=== PATIENT | female | born 1940 | race Caucasian/White ===

== ENCOUNTER 2019-11-01 05:00 | Outpatient (CLI) | payer MEDICARE, OTHER ==
[2019-11-01 13:57] LABS: #Basophils 0.1 thou/uL (0.0-0.2); #Eosinphils 0.3 thou/uL (0.0-0.7); #Lymphocytes 2.5 thou/uL (1.20-3.40); #Monocytes 0.6 thou/uL (0.11-0.59); #Neutrophils 2.3 thou/uL (1.40-6.50); %Basophils 1.1 % (0.0-1.0); %Eosinophils 5.1 % (0.0-10.0); %Lymphocytes 43.3 % (21.0-51.0); %Monocytes 9.6 % (0.0-10.0); %Neutrophils 40.9 % (42.0-75.0); Hemoglobin 15.1 g/dL (12.0-16.0); Mean Corpuscular HGB CONC 33.4 g/dL (32.0-36.0); Mean Corpuscular Hemoglobin 33.1 pg (27.0-31.0); Mean Corpuscular Volume 98.9 fL (78.0-98.0); Platelet Count 200 thou/uL (130-400); Red Blood Cell (RBC) Count 4.57 mill/uL (4.20-5.40); White Blood Cell (WBC) Count 5.7 thou/uL (4.8-10.8)
[2019-11-01 14:03] LABS: INR-International Normal Ratio 0.9; Prothrombin Time 12.5 sec (12.0-14.7)
[2019-11-01 14:05] LABS: Anion Gap 13 mmol/L (10-20); BUN (Urea Nitrogen) 9 mg/dL (9.8-20.1); Calc. Creatinine Clearance 0 mL/min (70-130); Calcium 9.3 mg/dL (7.8-10.44); Carbon Dioxide 26 mmol/L (23-31); Chloride 100 mmol/L (98-107); Estimated GFR-MDRD 75; Glucose 118 mg/dL (83-110); Potassium 4.3 mmol/L (3.5-5.1); Sodium 135 mmol/L (136-145)
[2019-11-01 15:09] LABS: Bacteria/HPF None Seen HPF (None Seen); Bilirubin Negative (Negative); Blood, Urine Negative (Negative); Clarity Clear (Clear); Glucose, Urine (Dipstick) Normal (Negative); Ketone, Urine Negative (Negative); Leukocyte 75 Leu/uL (Negative); Nitrite Negative (Negative); Protein, Urine (Dipstick) Negative (Neg-Trace); RBC/HPF 0-3 HPF (0-3); Specific Gravity, Urine 1.007 (1.002-1.036); Squamous Epithelial 0-3 HPF (0-3); Urobilinogen Normal mg/dL (Less than 2); WBC/HPF 0-3 HPF (0-3); pH, Urine 6.5 (5.0-9.0)
[2019-11-02 12:33] LABS: SARS-CoV-2 MS2 Positive; SARS-CoV-2 N Gene Negative; SARS-CoV-2 S Gene Negative; SARS-CoV-2 orf1ab Negative
== END 2019-11-01 05:01 | disposition home or self-care (01) ==
LOC: LABBT 05:00
PROVIDERS: ATTEND Orthopaedic Surgery
DX: Z01.812 Encounter for preprocedural laboratory examination (principal); Z11.59 Encounter for screening for other viral diseases; M17.11 Unilateral primary osteoarthritis, right knee
CPT/HCPCS: 80048; 81001; 85025; 85610; 87081; U0003; 87635

== ENCOUNTER 2019-11-05 05:46 | Day surgery (SDC) | payer MEDICARE ==
[2019-10-31 11:07] VITALS: BMI 28.8
[2019-11-05] MEDS ORDERED: Vancomycin 1.5 GRAM/300 ML BAG ONE (06:01)
[2019-11-05] MEDS ORDERED: Sodium Chloride 0.9% 100 ML ONE (06:01)
[2019-11-05] MEDS ORDERED: Levofloxacin 500 mg/D5W 100 ml Premix Bag ONE (06:01)
[2019-11-05] MEDS ORDERED: Tranexamic Acid 1,000 MG/10 ML VIAL ONE (06:01)
[2019-11-05] MEDS ORDERED: Fentanyl 100 MCG/2 ML VIAL ONE ×4 (06:19→09:47)
[2019-11-05] MEDS ORDERED: Midazolam HCl 2 mg/2 ml Vial ONE (06:24)
[2019-11-05] MEDS ORDERED: Lidocaine 1% (PF) 30 ML VIAL ONE (06:24)
[2019-11-05] MEDS ORDERED: Promethazine HCl 25 MG/ML VIAL IM PRN ×3 (06:58→08:45)
[2019-11-05] MEDS ORDERED: traMADol HCl 50 MG TAB PO PRN ×2 (06:58→07:17)
[2019-11-05] MEDS ORDERED: Zolpidem Tartrate 5 MG TAB PO PRN ×2 (06:58→07:17)
[2019-11-05] MEDS ORDERED: Ondansetron PF 4 MG/2 ML Vial IVP PRN ×2 (06:58→07:17)
[2019-11-05] MEDS ORDERED: Acetaminophen 325 MG TAB PO PRN (06:58)
[2019-11-05] MEDS ORDERED: Ondansetron HCl/PF 4 MG/2 ML Vial IVP PRN (08:45)
[2019-11-05] MEDS ORDERED: Promethazine HCl 25 MG/ML VIAL SLOW IVP PRN (08:45)
--- NOTE | 2019-11-05 09:24 | RAD ---
Exam:2 views right knee HISTORY: Status post arthroplasty COMPARISON: None FINDINGS: Findings compatible with a right knee arthroplasty. Expected postoperative changes. IMPRESSION: Expected postoperative changes
[2019-11-05] MEDS: Sodium Chloride 0.9% 1,000 ML IV SCH ×2 (10:20→11:26)
[2019-11-05] MEDS: Aspirin 81 mg Enteric Coated Tablet PO SCH ×2 (10:20→20:04)
[2019-11-05] MEDS: metFORMIN 500 MG TAB PO SCH ×3 (10:20→16:47)
--- NOTE | 2019-11-05 10:20 | OP ---
DATE OF PROCEDURE: 11/05/2019 This is Dwayne Strong PA-C dictating a report for Ti Huizar MD. PREOPERATIVE DIAGNOSES: 1. End-stage tricompartmental osteoarthritis, right knee. 2. Degenerative genu varum. POSTOPERATIVE DIAGNOSES: 1. End-stage tricompartmental osteoarthritis, right knee. 2. Degenerative genu varum. PROCEDURE PERFORMED: Cemented cruciate-sparing computer-assisted navigated right total knee arthroplasty. INDUSTRIAL MAINTENANCE MANAGER: Dwayne Strong PA-C. ANESTHESIA: General via LMA, augmented with indwelling adductor canal block and a single-shot sciatic block. COMPONENTS USED: [employer] Tri[employer]lon cemented cruciate-sparing size 5 femoral component with a size 4 cemented primary tibial baseplate, 9-mm polyethylene fixed bearing insert, and A32 patella button. FINDINGS: End-stage severe degenerative tricompartmental disease, [id number] arthrosis, periarticular osteophyte formation, large serous effusion, hypertrophic synovium, and changes consistent with degenerative genu varum. DRAINS: None. SPECIMENS: None. COMPLICATIONS: None. COUNTS: Correct. INDICATIONS FOR SURGERY: Lashawn is a 78-year-old white female who has had progressive right knee pain and problem with standing and walking for the last 5 to 7 years. She has failed conservative management and elected to proceed with total knee arthroplasty as definitive treatment of her pain. PROCEDURE IN DETAIL: After informed consent was obtained in the preoperative holding area, the patient was taken to the operative suite where general anesthesia was induced. Once adequate level of general anesthesia was obtained, the patient was positioned and a well-padded tourniquet was placed around the right proximal thigh. The right lower extremity was then prepped and draped in the usual sterile fashion. Prior to exsanguination, a time-out was called and all members of the surgical team agreed upon site, surgeon, and patient. The extremity was then exsanguinated and the tourniquet was raised. A midline longitudinal incision was then made directly over the patella extending 2 fingerbreadths above the superior pole of the patella and 2 fingerbreadths inferior to the inferior patellar pole of the patella. Deeper subcutaneous layers were dissected sharply and local bleeding was controlled with Bovie electrocautery. A quad tendon longitudinal split was then made sharply and a median parapatellar arthrotomy was carried out both sharp and with Bovie electrocautery, carried down to 1 fingerbreadth medial to the tibial tubercle. The knee was then placed into flexion and the patella was everted nicely, and a copious fat pad ectomy was performed, allowing for greater exposure of the tibia. The computer-assisted distal femoral fiducial was then placed and pinned firmly, and the distal femoral cutting guide was pinned firmly into place. The oscillating saw was then used to remove the appropriate amount of bone. The 4-in-1 cutting block was then placed on the distal femur and the oscillating saw was used to remove the appropriate amount of bone off the anterior, posterior, and chamfer cuts. After completion of bone cuts, the anterior cruciate ligament was resected sharply and the posterior cruciate ligament retractor was placed and the tibia was subluxed for better exposure. Partial meniscectomies were carried out, and the tibial computer-assisted fiducial was pinned, and the cutting guide was placed. Oscillating saw was then used to remove the bone, with Hohmann retractors used to take care and protect the collateral ligaments. After the tibial resection was performed, a laminar curtain worker was placed in between the freshened bone cuts. The knee placed at 90 degrees and further bilateral meniscectomies were carried out, and the curved osteotome and curettage were used to remove any excess bone spurs in the posterior compartment. The trial femoral component, tibial baseplate were placed with the appropriate polyethylene trial insert with an appropriate polyethylene spacer and patellar button. The knee was taken through full range of motion with flexion and extension from 0 to 90 degrees and patellar broach squarely in the trochlea without any squinting or subluxation noted. The knee was also stable to varus and valgus stressing at 0, 15, 45, and 90 degrees of flexion. The drawer was negative. All trial components were then removed and the keel punch was used to provide the appropriate defect in the tibia with a mallet. The freshened bone cuts were copiously irrigated with pulsatile lavage of about 1.5 L to remove all excess debris. The freshened bone cuts were then dried with suction and lap sponge. The knee was placed in flexion and retractors were placed to provide access to all bone cuts. Tobramycin-impregnated methyl methacrylate cement was then placed on the freshened bone cuts and implants which were malleted firmly into place. Curettage and Magnolia elevators were used to remove any excess bone cement. The knee was placed into full extension and the patellar button was placed under compression, and the cement was allowed to cure. Once completed, the components were again taken through full range of motion and copious irrigation of the knee was carried out with another liter of normal saline. All components were inspected fully with full range of motion and varus and valgus stressing. There was no laxity noted and full extension was observed clinically. Primary closure was accomplished with #2 interrupted Vicryl stitch of the arthrotomy defect. This was oversewn with a #2 running Quill barbed stitch. The subcutaneous layer was then closed with a running 0 barbed Monocryl stitch and skin closure accomplished with a running subcuticular 3-0 Monocryl barbed Quill stitch and augmented with cement on the skin. Tourniquet was lowered. Good spontaneous return of distal pulses was noted clinically and a sterile dressing was applied to the incision. The procedure was terminated without any complications. The patient was awakened in the operative suite and taken to the recovery room in stable condition. Job ID: [id number]
[2019-11-05] MEDS: Carvedilol 3.125 MG TAB PO SCH ×2 (10:21→20:04)
[2019-11-05] MEDS: sulfaSALAzine 500 MG TAB PO SCH ×2 (10:21→22:00)
[2019-11-05] MEDS: Ketorolac Tromethamine 30 MG/ML VIAL IVP SCH ×2 (11:23→17:45)
[2019-11-05] MEDS ORDERED: Insulin Regular 300 UNITS/3 ML VIAL SC PRN ×2 (11:36)
[2019-11-05] MEDS ORDERED: Dextrose 50% Abboject 50 ML SYRINGE SLOW IVP PRN (11:36)
[2019-11-05] MEDS ORDERED: Dextrose 5% in Water 1,000 ML IV PRN (11:36)
[2019-11-05] MEDS ORDERED: hydrALAZINE 20 MG/ML VIAL SLOW IVP PRN (11:38)
--- NOTE | 2019-11-05 11:39 | PDOC.HOSPP ---
- Subjective Encounter Date: 11/05/19 Encounter Time: 15:16 Subjective: Ms. Morales is seen today for management of her medical mngt while she is in the hospital s/p right knee arthroscopy done today by Dr. Huizar. She is feeling well currently. She reports some nasal congestion due to allergies, but this has been ongoing x 6 months. - Objective Vital Signs & Weight: Vital Signs (12 hours) Temp Pulse Resp BP Pulse Ox 11/05/19 10:30 97.7 F 72 18 127/76 94 L Weight Weight 190 lb Additional Labs: Accuchecks 11/05/19 11:32 POC Glucose 171 H Laboratory Tests 10/31/19 11:16 Potassium 4.3 Creatinine 0.75 EKG Reviewed by me: Yes (SR) Hospitalist ROS - Review of Systems Respiratory: denies: cough, dry, shortness of breath, hemoptysis, SOB with excertion, pleuritic pain, sputum, wheezing, other Cardiovascular: denies: chest pain, palpitations, orthopnea, paroxysmal noc. dyspnea, edema, light headedness, other Musculoskeletal: reports: other (right knee pain) - Medication Medications: Active Medications Generic Name Dose Route Start Last Admin Trade Name Freq PRN Reason Stop Dose Admin Aspirin 81 mg 11/05/19 09:00 11/05/19 10:20 Ecotrin PO Not Given BID NAMRATA Carvedilol 3.125 mg 11/05/19 09:00 11/05/19 10:21 Coreg PO Not Given BID NAMRATA Sodium Chloride 1,000 mls @ 100 mls/hr 11/05/19 07:00 11/05/19 11:26 Normal Saline 0.9% IV 1,000 mls .Q10H NAMRATA Administration Ketorolac Tromethamine 15 mg 11/05/19 12:00 11/05/19 11:23 Toradol IVP 11/07/19 06:01 15 mg Q6HR NAMRATA Administration Metformin HCl 500 mg 11/05/19 08:00 11/05/19 11:29 Glucophage PO 500 mg TID-WM NAMRATA Administration Sulfasalazine 1,000 mg 11/05/19 09:00 11/05/19 10:21 Azulfidine PO Not Given BID NAMRATA - Exam General Appearance: NAD, awake alert Eye: PERRL, anicteric sclera ENT: normocephalic atraumatic Heart: RRR, no murmur, no gallops, no rubs Respiratory: CTAB Gastrointestinal: soft, non-tender, normal bowel sounds Psychiatric: A&O x 3 Hosp A/P - Plan DM2 - glucose is 171 today CKD 2 HTN Hypothyroidism Plan: Will continue with her Metformin Start on moderate sliding scale insulin Glucose check ACHS Diabetic diet Cont Coreg Cont Levothyroidism
[2019-11-05] MEDS: traMADol HCl 50 MG TAB PO PRN ×2 (12:18→19:53)
[2019-11-05] MEDS ORDERED: Dexamethasone 20 MG/5 ML VIAL ONE (12:46)
[2019-11-05] MEDS ORDERED: Ketorolac Tromethamine 30 MG/ML VIAL ONE (12:46)
[2019-11-05] MEDS ORDERED: Bupivacaine HCl 0.5%/Epinephrine 1:200,000/PF 30 ml Vial ONE (12:46)
[2019-11-05] MEDS ORDERED: Ondansetron PF 4 MG/2 ML Vial ONE (12:46)
[2019-11-05] MEDS ORDERED: PROPOFOL 200 MG/20 ML VIAL ONE (12:46)
[2019-11-05] MEDS ORDERED: EPHEDRINE 25 MG/5 ML SYRINGE ONE (12:46)
[2019-11-05] MEDS ORDERED: Ropivacaine 0.2% HCl/PF (40 MG/20 ML VIAL) ONE (12:46)
[2019-11-05] MEDS: Fentanyl 100 MCG/2 ML VIAL SLOW IVP PRN ×4 (13:52→23:05)
[2019-11-05] MEDS ORDERED: Ketorolac Tromethamine 30 MG/ML VIAL IVP SCH (14:00)
[2019-11-05] MEDS: diphenhydrAMINE 25 MG CAP PO PRN ×2 (15:41→22:01)
[2019-11-05] MEDS ORDERED: Vancomycin 1.5 GRAM/300 ML BAG 1.5 GM in Premix Bag 1 BAG IVPB SCH (18:00)
[2019-11-05] MEDS: Atorvastatin Calcium 20 MG TAB PO SCH (20:04)
[2019-11-05] MEDS ORDERED: Doxepin HCl 10 MG CAP PO PRN (23:30)
[2019-11-05] MEDS ORDERED: tiZANidine HCl 4 MG TAB PO PRN (23:35)
[2019-11-06] MEDS: tiZANidine HCl 4 MG TAB PO PRN (00:06)
[2019-11-06] MEDS: Ketorolac Tromethamine 30 MG/ML VIAL IVP SCH ×4 (00:06→17:02)
[2019-11-06] MEDS: Sodium Chloride 0.9% 1,000 ML IV SCH ×3 (01:59→23:08)
[2019-11-06] MEDS: Acetaminophen 325 MG TAB PO PRN ×2 (02:11→21:50)
[2019-11-06] MEDS: traMADol HCl 50 MG TAB PO PRN (02:11)
[2019-11-06] MEDS: Fentanyl 100 MCG/2 ML VIAL SLOW IVP PRN (02:22)
[2019-11-06 05:19] LABS: Hemoglobin 12.3 g/dL (12.0-16.0); Mean Corpuscular HGB CONC 33.1 g/dL (32.0-36.0); Mean Corpuscular Hemoglobin 33.5 pg (27.0-31.0); Mean Platelet Volume 7.6 fL (7.4-10.4); Platelet Count 164 thou/uL (130-400); Red Blood Cell (RBC) Count 3.66 mill/uL (4.20-5.40); White Blood Cell (WBC) Count 8.2 thou/uL (4.8-10.8)
[2019-11-06] MEDS: Levothyroxine 150 MCG TAB PO SCH (05:43)
[2019-11-06] MEDS ORDERED: diphenhydrAMINE 50 MG/ML VIAL IM/IV PRN (06:38)
[2019-11-06] MEDS ORDERED: Zolpidem Tartrate 5 MG TAB PO PRN (06:38)
[2019-11-06] MEDS ORDERED: Promethazine HCl 25 MG/ML VIAL IM PRN (06:38)
[2019-11-06] MEDS ORDERED: Naloxone HCl 0.4 mg/ml Vial IV PRN (06:38)
[2019-11-06] MEDS: fentaNYL Citrate/PF 2,000 MCG in Sodium Chloride 0.9% 60 ML IV PRN (07:35)
[2019-11-06] MEDS: Ropivacaine HCl/PF 250 ML in Premix Bag 1 BAG NERVE BLCK SCH (07:36)
[2019-11-06] MEDS: metFORMIN 500 MG TAB PO SCH ×3 (08:22→17:03)
[2019-11-06] MEDS: Ferrous Gluconate 324 MG TAB PO SCH ×2 (08:22→17:03)
[2019-11-06] MEDS: Multivitamin W/ Minerals 1 TAB PO SCH (08:22)
[2019-11-06] MEDS: Carvedilol 3.125 MG TAB PO SCH ×2 (08:23→21:50)
[2019-11-06] MEDS: Senokot S 8.6-50 MG TAB PO SCH ×2 (08:23→21:50)
[2019-11-06] MEDS: Aspirin 81 mg Enteric Coated Tablet PO SCH ×2 (08:23→21:51)
[2019-11-06] MEDS: sulfaSALAzine 500 MG TAB PO SCH ×2 (08:39→21:50)
[2019-11-06] MEDS: diphenhydrAMINE 25 MG CAP PO PRN (09:31)
--- NOTE | 2019-11-06 16:55 | PRG ---
DATE OF SERVICE: 11/06/2019 SUBJECTIVE: Lashawn is a 78-year-old female, who is postop day 1 from right total knee arthroplasty. She is doing relatively well, but she continues to complain about many things. OBJECTIVE: VITAL SIGNS: Temperature 98, pulse 66, respiratory rate 16, and blood pressure 109/59. GENERAL: She is alert, responsive, appropriate with examiner. She is neurovascularly intact in the right lower extremity. LABORATORY DATA: Hemoglobin and hematocrit 12.3 and 37.0. IMPRESSION: A 78-year-old female, postoperative day 1, right total knee arthroplasty, doing well. PLAN: Continue with current care. Probable discharge to home tomorrow. Job ID: [id number]
[2019-11-06] MEDS: Ondansetron PF 4 MG/2 ML Vial IVP PRN (17:02)
[2019-11-06] MEDS: Atorvastatin Calcium 20 MG TAB PO SCH (21:51)
[2019-11-07] MEDS: Ketorolac Tromethamine 30 MG/ML VIAL IVP SCH ×5 (00:28→23:50)
[2019-11-07] MEDS: diphenhydrAMINE 25 MG CAP PO PRN ×2 (00:28→09:32)
[2019-11-07] MEDS: Ondansetron PF 4 MG/2 ML Vial IVP PRN (00:28)
[2019-11-07] MEDS: Levothyroxine 150 MCG TAB PO SCH (05:09)
[2019-11-07 07:08] LABS: Mean Corpuscular HGB CONC 32.1 g/dL (32.0-36.0); Mean Corpuscular Hemoglobin 33.3 pg (27.0-31.0); Mean Platelet Volume 7.1 fL (7.4-10.4); Platelet Count 164 thou/uL (130-400); RBC Distribution Width 12.1 % (11.5-14.5); White Blood Cell (WBC) Count 6.6 thou/uL (4.8-10.8)
[2019-11-07] MEDS: Ropivacaine HCl/PF 250 ML in Premix Bag 1 BAG NERVE BLCK SCH (09:32)
[2019-11-07] MEDS: Ferrous Gluconate 324 MG TAB PO SCH ×2 (09:33→18:46)
[2019-11-07] MEDS: Multivitamin W/ Minerals 1 TAB PO SCH (09:33)
[2019-11-07] MEDS: Aspirin 81 mg Enteric Coated Tablet PO SCH ×2 (09:33→21:28)
[2019-11-07] MEDS: metFORMIN 500 MG TAB PO SCH ×3 (09:33→18:46)
[2019-11-07] MEDS: Senokot S 8.6-50 MG TAB PO SCH ×2 (09:33→21:28)
[2019-11-07] MEDS: Carvedilol 3.125 MG TAB PO SCH ×2 (09:37→21:28)
[2019-11-07] MEDS: fentaNYL Citrate/PF 2,000 MCG in Sodium Chloride 0.9% 60 ML IV PRN (10:12)
[2019-11-07] MEDS: Sodium Chloride 0.9% 1,000 ML IV SCH ×2 (10:12→19:28)
[2019-11-07] MEDS: sulfaSALAzine 500 MG TAB PO SCH ×2 (12:03→21:28)
[2019-11-07] MEDS: tiZANidine HCl 4 MG TAB PO PRN (21:28)
[2019-11-07] MEDS: Atorvastatin Calcium 20 MG TAB PO SCH (21:28)
[2019-11-07] MEDS: Acetaminophen 325 MG TAB PO PRN (21:34)
[2019-11-08 00:30] VITALS: TEMP 98.8
[2019-11-08] MEDS: Levothyroxine 150 MCG TAB PO SCH (05:01)
[2019-11-08] MEDS: Ketorolac Tromethamine 30 MG/ML VIAL IVP SCH (05:02)
[2019-11-08] MEDS: diphenhydrAMINE 25 MG CAP PO PRN (05:03)
[2019-11-08] MEDS: Sodium Chloride 0.9% 1,000 ML IV SCH (06:11)
[2019-11-08 06:36] VITALS: BP 131/69
[2019-11-08] MEDS: Aspirin 81 mg Enteric Coated Tablet PO SCH (08:02)
[2019-11-08] MEDS: Senokot S 8.6-50 MG TAB PO SCH (08:02)
[2019-11-08] MEDS: metFORMIN 500 MG TAB PO SCH ×2 (08:02→11:45)
[2019-11-08] MEDS: Multivitamin W/ Minerals 1 TAB PO SCH (08:03)
[2019-11-08] MEDS: Carvedilol 3.125 MG TAB PO SCH (08:03)
[2019-11-08] MEDS: Ferrous Gluconate 324 MG TAB PO SCH (08:03)
--- NOTE | 2019-11-08 09:50 | PRG ---
DATE OF SERVICE: 11/07/2019 SUBJECTIVE: Lashawn is a 78-year-old female, postop day 2 from a right total knee arthroplasty. She has been slow to progress with therapy and her ambulatory distances are little diminished because of pain. She has had difficulty with ambulation. Otherwise, she is alert, responsive, and tolerating regular diet. OBJECTIVE: VITAL SIGNS: Temperature 97.5, pulse 67, respiratory rate 14, O2 saturation is 93% on room air, blood pressure 112/65. GENERAL: She is alert, responsive, and appropriate with examiner. Her incision is clean without any erythema and she is neurovascularly intact. IMPRESSION: A 78-year-old female, postop day 2, right total knee arthroplasty with a slow progress. PLAN: We will hold discharge for now. Plan for discharge tomorrow. Continue current care and efforts of physical therapy and if she milestones, we will discharge to home. Job ID: [id number]
[2019-11-08] MEDS: sulfaSALAzine 500 MG TAB PO SCH (09:51)
[2019-11-08] MEDS ORDERED: traMADol HCl 50 MG TAB PO PRN ×2 (12:06)
[2019-11-08] MEDS: Ondansetron PF 4 MG/2 ML Vial IVP PRN (12:12)
== END 2019-11-08 15:39 | disposition home or self-care (01) ==
LOC: SDC 05:46 → SURG B 06:58 → SDC 11-08 15:39
PROVIDERS: ATTEND Orthopaedic Surgery
PROC: 0SRC0J9 Replacement of Right Knee Joint with Synthetic Substitute, Cemented, Open Approach (ICD-10-PCS; principal; 2019-11-05)
PROC: 8E0YXBZ Computer Assisted Procedure of Lower Extremity (ICD-10-PCS; 2019-11-05)
DX: M17.11 Unilateral primary osteoarthritis, right knee (principal); M21.161 Varus deformity, not elsewhere classified, right knee; I12.9 Hypertensive chronic kidney disease with stage 1 through stage 4 chronic kidney disease, or unspecified chronic kidney disease; E11.22 Type 2 diabetes mellitus with diabetic chronic kidney disease; N18.9 Chronic kidney disease, unspecified; E03.9 Hypothyroidism, unspecified; Z79.84 Long term (current) use of oral hypoglycemic drugs; Z79.899 Other long term (current) drug therapy; Z88.0 Allergy status to penicillin; Z88.5 Allergy status to narcotic agent; Z91.013 Allergy to seafood
CPT/HCPCS: 20985; 27447; 73560; 82962; 85027; 93005; 97110 ×2; 97116 ×3; 97139 ×4; 97530 ×2; C1713; C1776; J3010 ×2; 36415; 36416; 93010; J0670; J1100; J1815; J1885; J1956; J2001; J2250; J2405; J2704; J2795; J3370; J3490; Q0163

== ENCOUNTER 2020-01-29 14:02 | Inpatient (IN) | payer MEDICARE, OTHER ==
[~2020-01-29 14:02] MED LIST: Heparin 1,000 UNITS/ML VIAL ONE
[2020-01-29 15:54] VITALS: BMI 28.8
[2020-01-29 16:23] LABS: #Basophils 0.1 thou/uL (0.0-0.2); #Lymphocytes 1.6 thou/uL (1.20-3.40); #Monocytes 1.3 thou/uL (0.11-0.59); #Neutrophils 7.4 thou/uL (1.40-6.50); %Basophils 0.6 % (0.0-1.0); %Eosinophils 0.1 % (0.0-10.0); %Lymphocytes 15.3 % (21.0-51.0); %Monocytes 12.7 % (0.0-10.0); %Neutrophils 71.2 % (42.0-75.0); Hemoglobin 13.8 g/dL (12.0-16.0); Mean Corpuscular HGB CONC 34.7 g/dL (32.0-36.0); Mean Corpuscular Hemoglobin 34.9 pg (27.0-31.0); Mean Platelet Volume 7.3 fL (7.4-10.4); Platelet Count 193 thou/uL (130-400); RBC Distribution Width 12.5 % (11.5-14.5); Red Blood Cell (RBC) Count 3.95 mill/uL (4.20-5.40); White Blood Cell (WBC) Count 10.4 thou/uL (4.8-10.8)
[2020-01-29 16:46] LABS: Anion Gap 15 mmol/L (10-20); BUN (Urea Nitrogen) 10 mg/dL (9.8-20.1); Calc. Creatinine Clearance 86 mL/min (70-130); Calcium 8.9 mg/dL (7.8-10.44); Carbon Dioxide 25 mmol/L (23-31); Chloride 94 mmol/L (98-107); Estimated GFR-MDRD 77; Glucose 154 mg/dL (83-110); Potassium 3.6 mmol/L (3.5-5.1); Sodium 130 mmol/L (136-145)
[2020-01-29] MEDS: Vancomycin 1.5 GRAM/300 ML BAG 1.5 GM in Premix Bag 1 BAG IVPB SCH (17:38)
[2020-01-29 19:35] LABS: Bacteria/HPF None Seen HPF (None Seen); Bilirubin Negative (Negative); Blood, Urine Trace (Negative); Clarity Clear (Clear); Glucose, Urine (Dipstick) Normal (Negative); Ketone, Urine 10 mg/dL (Negative); Leukocyte 75 Leu/uL (Negative); Mucous/LPF 1+ LPF (<2+); Nitrite Negative (Negative); Protein, Urine (Dipstick) 70 mg/dL (Neg-Trace); Specific Gravity, Urine 1.025 (1.002-1.036); Squamous Epithelial 0-3 HPF (0-3); pH, Urine 6.5 (5.0-9.0)
[2020-01-29] MEDS: HYDROcodone/Acetaminophen 10/325 mg Tablet PO PRN (19:52)
[2020-01-30] MEDS: HYDROcodone/Acetaminophen 10/325 mg Tablet PO PRN (04:37)
[2020-01-30] MEDS: Vancomycin 1.5 GRAM/300 ML BAG 1.5 GM in Premix Bag 1 BAG IVPB SCH ×2 (05:32→18:37)
[2020-01-30 09:11] LABS: SARS-CoV-2 NAA Rapid Test Not Detected (NotDetected)
[2020-01-30] MEDS ORDERED: Carvedilol 3.125 MG TAB PO SCH ×2 (09:45→21:00)
[2020-01-30] MEDS ORDERED: Ketorolac Tromethamine 30 MG/ML VIAL ONE (10:03)
[2020-01-30] MEDS ORDERED: Bupivacaine HCl 0.5%/Epinephrine 1:200,000/PF 30 ml Vial ONE (10:03)
[2020-01-30] MEDS ORDERED: EPHEDRINE 25 MG/5 ML SYRINGE ONE (10:03)
[2020-01-30] MEDS ORDERED: PROPOFOL 200 MG/20 ML VIAL ONE (10:03)
[2020-01-30] MEDS ORDERED: Midazolam HCl 2 mg/2 ml Vial ONE (10:14)
[2020-01-30] MEDS ORDERED: Fentanyl 100 MCG/2 ML VIAL ONE ×4 (10:14→14:05)
[2020-01-30] MEDS ORDERED: Lidocaine 1% PF 5 ML VIAL ONE (10:15)
[2020-01-30] MEDS ORDERED: Promethazine HCl 25 MG/ML VIAL IM PRN ×3 (10:19→11:45)
[2020-01-30] MEDS ORDERED: Promethazine HCl 25 MG/ML VIAL SLOW IVP PRN (10:19)
[2020-01-30] MEDS ORDERED: Ondansetron HCl/PF 4 MG/2 ML Vial IVP PRN (10:19)
[2020-01-30] MEDS ORDERED: Acetaminophen 325 MG TAB PO PRN (11:43)
[2020-01-30] MEDS ORDERED: diphenhydrAMINE 25 MG CAP PO PRN (11:43)
[2020-01-30] MEDS ORDERED: Zolpidem Tartrate 5 MG TAB PO PRN ×2 (11:43→11:45)
[2020-01-30] MEDS ORDERED: HYDROcodone/Acetaminophen 10/325 mg Tablet PO PRN ×4 (11:43→11:45)
[2020-01-30] MEDS ORDERED: Ondansetron PF 4 MG/2 ML Vial IVP PRN (11:45)
[2020-01-30] MEDS ORDERED: Ropivacaine HCl/PF 250 ML in Premix Bag 1 BAG NERVE BLCK SCH (11:45)
[2020-01-30] MEDS ORDERED: Vancomycin HCl 1.5 GM in Sodium Chloride 0.9% 250 ML 300 ML IVPB SCH (11:45)
[2020-01-30] MEDS ORDERED: traMADol HCl 50 MG TAB PO PRN ×2 (11:45→11:48)
[2020-01-30] MEDS ORDERED: Doxepin HCl 10 MG CAP PO PRN (11:48)
[2020-01-30] MEDS ORDERED: oxyCODONE/Acetaminophen 5 mg/325 mg Tablet PO PRN (13:00)
[2020-01-30] MEDS ORDERED: Bupivacaine 0.25% HCL 30 ML VIAL ONE (13:07)
[2020-01-30] MEDS: metFORMIN 500 MG TAB PO SCH ×2 (15:42→19:58)
[2020-01-30] MEDS: Sodium Chloride 0.9% 1,000 ML IV SCH (15:43)
[2020-01-30] MEDS ORDERED: Dextrose 50% Abboject 50 ML SYRINGE SLOW IVP PRN (16:24)
[2020-01-30] MEDS ORDERED: Dextrose 5% in Water 1,000 ML IV PRN (16:24)
--- NOTE | 2020-01-30 16:44 | CON ---
DATE OF CONSULTATION: 01/30/2020 PRIMARY CARE PROVIDER: None. CHIEF COMPLAINT: Management of medical comorbidities. HISTORY OF PRESENT ILLNESS: Ms. Morales is a pleasant 79-year-old lady, who was seen at [facility] on January 30, 2020. Earlier today, she underwent right knee surgery. She had right total knee arthroplasty in October 2019. She had revision surgery today because of concern over infection. She denies any chest pain, shortness of breath, fevers, or chills. She denies any nausea or vomiting. She denies any abdominal pain. REVIEW OF SYSTEMS: All systems were reviewed and found to be negative except for the pertinent positives mentioned above. PAST MEDICAL HISTORY: Coronary artery disease, status post [place] in 2006; dyslipidemia; degenerative joint disease; rheumatoid arthritis; hypothyroidism; and diabetes mellitus. SURGICAL HISTORY: Cholecystectomy; hysterectomy; removal of bone spur from the shoulder; and right total knee arthroplasty in October 2019, followed by revision surgery today. ALLERGIES: PENICILLIN AND SHELLFISH. HOME MEDICATIONS: 1. Ibuprofen p.r.n. 2. Atorvastatin 20 mg at bedtime. 3. Coreg 3.125 mg two times a day. 4. Doxepin p.r.n. 5. three times a day. 6. Levothyroxine 150 mcg daily. 7. Sulfasalazine 1000 mg two times a day. 8. Tramadol as needed. 9. Vitamin C 500 mg daily. 10. Vitamin D3, 1000 units daily. 11. Vitamin B12, 1000 mcg daily. SOCIAL HISTORY: No history of tobacco use, alcohol use, or recreational drug use. FAMILY HISTORY: Significant for diabetes mellitus. PHYSICAL EXAMINATION: GENERAL: On examination, Ms. Morales is awake and alert, not in acute distress. VITAL SIGNS: Blood pressure is 116/68, pulse 78, respiratory rate 16, oxygen saturation 96% on room air, temperature is 99.3 degrees Fahrenheit. EYES: No scleral icterus. No conjunctival pallor. ENT: Moist mucosal membranes. No oropharyngeal erythema or exudates. NECK: Supple, nontender. Trachea is midline. RESPIRATORY: Accessory muscles of breathing are not active. Chest wall movements are symmetric bilaterally. Lungs are clear to auscultation without wheeze, rhonchi, or crepitations. CARDIOVASCULAR: S1 and S2 are heard, regular. Peripheral pulses palpable. ABDOMEN: Soft, nontender. Bowel sounds are heard. NEUROLOGIC: Cranial nerves 2 through 12 are intact. MUSCULOSKELETAL: She is status post right knee surgery. SKIN: No rashes. LYMPHATIC: No cervical lymphadenopathy. PSYCHIATRIC: Normal mood, normal affect. The patient is oriented to person, place and time. LABORATORY DATA: Ms. Morales is labs and investigations were reviewed. She has normal white count, normal hemoglobin, normal platelet count. Decreased sodium of 130, normal creatinine, normal potassium. Urinalysis showing leukocyte esterase and COVID-19 test is negative. ASSESSMENT AND PLAN: Ms. Morales is a pleasant 79-year-old lady, who was seen at [facility] for management of medical comorbidities. Her problem list includes: 1. Diabetes mellitus type 2: The patient will be started on Accu-Cheks and insulin sliding scale. Further management depending on blood sugars. 2. Hypertension: Continue beta-paola during the perioperative period, slowly resume other antihypertensives if blood pressure permits. 3. Dyslipidemia: Continue statin. 4. Hyponatremia: Likely asymptomatic at this time. Recheck sodium level. 5. Coronary artery disease: Appears to be stable, the patient does not complain of any chest pain. 6. Infected right knee: Infectious Disease Service has been consulted for management. Many thanks for allowing me to participate in your patient's care. Please feel free to contact me with any questions or concerns. LEVEL OF RISK: Moderate. LEVEL OF COMPLEXITY: Moderate. Job ID: [id number]
[2020-01-30] MEDS: HumaLOG 300 UNITS/3 ML VIAL SC PRN (18:37)
[2020-01-30] MEDS: Carvedilol 3.125 MG TAB PO SCH (18:37)
[2020-01-30] MEDS ORDERED: Sodium Chloride 0.9% 1,000 ML IV SCH (19:15)
--- NOTE | 2020-01-30 19:48 | OP ---
DATE OF PROCEDURE: 01/30/2020 PREOPERATIVE DIAGNOSIS: Acute septic periprosthetic arthritis, right knee. POSTOPERATIVE DIAGNOSIS: Acute septic periprosthetic arthritis, right knee. PROCEDURE PERFORMED: Revision (one component) polyethylene swab right total knee arthroplasty. AQUATIC LABORER: Dwayne Strong PA-C ANESTHESIA: General via LMA augmented with indwelling femoral nerve catheter and indwelling block. COMPONENTS USED: [facility] Triathlon size 4, 9 mm polyethylene fixed bearing insert. TOURNIQUET TIME: 43 minutes at 300 mmHg. FINDINGS: Purulence noted upon arthrotomy entering the capsule. Significant subdermal edema and swelling changes consistent with pyogenic arthritis. Suspect ascending source. ESTIMATED BLOOD LOSS: Less than 100. DRAINS: None. SPECIMENS: None. Specimen obtained yesterday via needle arthrocentesis. COMPLICATIONS: None. COUNTS: Correct. INDICATION FOR SURGERY: Lashawn is a 79-year-old female who had right total knee arthroplasty performed in October of this year. She is doing exceptionally well, was released from active care, and call back to the clinic a few days later, noting she had swelling and discomfort in the leg. She was brought into clinic. An arthrocentesis was performed by Dr. Huizar yesterday and immediate Gram stain demonstrated gram-positive cocci. The patient was admitted to the hospital and has elected to proceed with open arthrotomy and polyethylene swap for what appears to be acute pyogenic septic arthritis. PROCEDURE IN DETAIL: After informed consent was obtained in the preoperative holding area, the patient was taken to the operative suite, where general anesthesia was induced. An LMA was placed and secured. She received preoperative antibiotics and a well-padded tourniquet was placed over the right proximal thigh. Prior to exsanguination, a time-out was called. A multidisciplinary time-out was called. All members participated. After exsanguination, longitudinal incision was made directly over the patient's prior arthrotomy incision. The diver assistant provided subdermal dissection and subfascial dissection down to the capsule. Knee was then placed in flexion and the arthrotomy was performed in a median parapatellar arthrotomy using a sharp dissection down to the tibial tubercle. The diver assistant in conjunction with the primary surgeon then performed a subtotal synovectomy in the superior pouch and lateral medial gutters. The patella was everted and identified and inspected. It seemed to be firm. The entire synovium was then removed with Leksell rongeur and combination of Bovie electrocautery. After subtotal synovectomy, we then removed the polyethylene fixed bearing insert and performed pulsatile lavage with 3 L of Betadine mixture and then 3 L of saline with pulsatile lavage. After full lavage and debridement, we then replaced a 9 mm polyethylene fixed bearing insert with a new spacer. Continue lavage and primary closure of the arthrotomy was performed with interrupted #2 Vicryl and then this was oversewn with a #2 Quill. The subcutaneous layer was closed with a running 0 Quill stitch and a running horizontal mattress was used to reapproximate skin. Sterile dressing was applied. Procedure terminated without any complication. Tourniquet was dropped. The patient was taken to the recovery room, LMA was removed in the recovery room, and she was in stable condition. Job ID: [id number]
[2020-01-30] MEDS: sulfaSALAzine 500 MG TAB PO SCH (19:57)
[2020-01-30] MEDS: Ferrous Gluconate 324 MG TAB PO SCH (19:58)
[2020-01-30] MEDS: Aspirin 81 mg Enteric Coated Tablet PO SCH (19:59)
[2020-01-30] MEDS: Atorvastatin Calcium 20 MG TAB PO SCH (19:59)
[2020-01-30] MEDS: Senokot S 8.6-50 MG TAB PO SCH (19:59)
[2020-01-30] MEDS: Fentanyl 100 MCG/2 ML VIAL IV PRN ×2 (20:05→22:45)
--- NOTE | 2020-01-30 20:41 | CON ---
DATE OF CONSULTATION: 01/30/2020 REASON FOR CONSULTATION: Right TKR infection. HISTORY OF PRESENT ILLNESS: A 79-year-old with history of coronary artery disease with prior GA as well as rheumatoid arthritis, hyperlipidemia, and hypothyroidism, who had a knee replacement on the right side in October, now developed inflammatory changes, and Dr. Huizar did a washout with liner replacement. She is feeling actually pretty good. She denies any headaches. No shortness of breath. No abdominal pain or diarrhea. [id number] pain in the right knee. Some cramps intermittently noted. No genitourinary symptoms. MEDICAL HISTORY: 1. Coronary artery disease. 2. GA. 3. Cardiac catheterization, but no angioplasty or stents. 4. Hyperlipidemia. 5. Rheumatoid arthritis, on Enbrel for 2 shots, it does not look like she is going to get anymore because she had apparently had a reaction to it. 6. Hypothyroidism. SURGICAL HISTORY: 1. Cholecystectomy. 2. Right knee replacement. 3. Hysterectomy. ALLERGIES: PENICILLIN, SHELLFISH. SOCIAL HISTORY: Lives in [place], retired, used to work at [employer]. FAMILY HISTORY: Melanoma, prostate cancer, and diabetes. CURRENT MEDICATIONS: 1. Vitamin C. 2. Lipitor. 3. Coreg. 4. Benadryl. 5. Sinequan. 6. Sublimaze. 7. Fergon. 8. Theragran. 9. Toradol. 10. Synthroid. 11. Glucophage. 12. Phenergan. 13. Senokot. 14. Azulfidine. 15. Ultram. PHYSICAL EXAMINATION: VITAL SIGNS: T-max 100.6 and she is 99.3, BP 116/68, heart rate 78, respiratory rate 16, and O2 saturation 96. SKIN: The right knee site, I did not remove the dressing. There is iodine or Betadine discoloration of the skin in the right lower extremity. No lymphadenopathy. HEENT: Noncontributory. NECK: Supple. LUNGS: Symmetric. Clear breath sounds. HEART: S1 and S2. Regular rate without murmurs. No S3 or S4. ABDOMEN: Soft, not distended or tender. No ascites. No bladder distention. She has an indwelling Melgar catheter for now. EXTREMITIES: Pulses are good in lower extremities. Cap refill is normal. NEUROLOGIC: Nonfocal. Cognitive function appears to be normal. LABORATORY DATA: White cell count 10.4, hemoglobin 13.8, and platelets 193 with 71% neutrophils. Chemistry, creatinine 0.73. Urinalysis, 11-20 wbc's. COVID PCR negative. IMAGING STUDIES: No recent imaging studies. MICROBIOLOGY: Specimen Gram stain thus far with gram-positive cocci in clusters, yet to be fully identified susceptibility tested. ASSESSMENT: Rheumatoid arthritis, previously on Enbrel and other immunosuppressive medications that she does not remember. In 10/2019, right total knee replacement with now infection, probably either due to Staphylococcus aureus/methicillin-resistant Staphylococcus aureus or coagulase-negative Staphylococcus. Continue vancomycin and will tomorrow hopefully have some more info and then we can deescalate the current regimen to the final regimen. PICC line placement and then suppressive therapy after completion of the initial phase of treatment for an indefinite period of time. Job ID: [id number] MTDD
[2020-01-30] MEDS: Ketorolac Tromethamine 30 MG/ML VIAL IVP PRN (21:02)
[2020-01-31] MEDS: Sodium Chloride 0.9% 1,000 ML IV SCH ×3 (00:29→17:59)
[2020-01-31 04:45] LABS: Hemoglobin 12.4 g/dL (12.0-16.0); Mean Corpuscular HGB CONC 33.2 g/dL (32.0-36.0); Mean Corpuscular Hemoglobin 34.2 pg (27.0-31.0); Mean Platelet Volume 7.2 fL (7.4-10.4); Platelet Count 174 thou/uL (130-400); RBC Distribution Width 12.5 % (11.5-14.5); Red Blood Cell (RBC) Count 3.62 mill/uL (4.20-5.40); White Blood Cell (WBC) Count 6.1 thou/uL (4.8-10.8)
[2020-01-31 04:58] LABS: Anion Gap 9 mmol/L (10-20); BUN (Urea Nitrogen) 11 mg/dL (9.8-20.1); Calc. Creatinine Clearance 96 mL/min (70-130); Calcium 8.1 mg/dL (7.8-10.44); Carbon Dioxide 29 mmol/L (23-31); Chloride 100 mmol/L (98-107); Estimated GFR-MDRD 87; Glucose 142 mg/dL (83-110); Potassium 4.6 mmol/L (3.5-5.1); Sodium 133 mmol/L (136-145)
[2020-01-31] MEDS: Levothyroxine 150 MCG TAB PO SCH (05:03)
[2020-01-31] MEDS: Vancomycin 1.5 GRAM/300 ML BAG 1.5 GM in Premix Bag 1 BAG IVPB SCH ×2 (05:08→17:58)
[2020-01-31] MEDS: oxyCODONE/Acetaminophen 5 mg/325 mg Tablet PO PRN ×4 (05:42→23:34)
[2020-01-31] MEDS: HumaLOG 300 UNITS/3 ML VIAL SC PRN ×2 (06:04→12:43)
[2020-01-31] MEDS: sulfaSALAzine 500 MG TAB PO SCH ×2 (08:50→21:14)
[2020-01-31] MEDS: Senokot S 8.6-50 MG TAB PO SCH ×2 (08:50→21:15)
[2020-01-31] MEDS: Cyanocobalamin (Vitamin B-12) 1,000 MCG TAB PO SCH (08:51)
[2020-01-31] MEDS: Aspirin 81 mg Enteric Coated Tablet PO SCH ×2 (08:51→21:15)
[2020-01-31] MEDS: Ferrous Gluconate 324 MG TAB PO SCH ×2 (08:51→21:15)
[2020-01-31] MEDS: Multivitamin W/ Minerals 1 TAB PO SCH (08:51)
[2020-01-31] MEDS: Cholecalciferol 1,000 UNITS (25 MCG) TAB PO SCH (08:51)
[2020-01-31] MEDS: Ascorbic Acid 500 mg Chewable Tablet PO SCH (08:52)
[2020-01-31] MEDS: Carvedilol 3.125 MG TAB PO SCH ×2 (08:52→16:09)
[2020-01-31] MEDS: metFORMIN 500 MG TAB PO SCH ×3 (08:52→21:15)
[2020-01-31] MEDS: Ketorolac Tromethamine 30 MG/ML VIAL IVP PRN ×2 (09:02→17:58)
--- NOTE | 2020-01-31 11:40 | PDOC.HOSPP ---
- Subjective Encounter Date: 01/31/20 Encounter Time: 11:00 Subjective: is ambulating with PT and rolling walker feels better - Objective Vital Signs & Weight: Vital Signs (12 hours) Temp Pulse Resp BP Pulse Ox 01/31/20 07:24 98.2 F 75 18 112/66 93 L 01/31/20 04:29 99.8 F H 80 16 137/68 92 L 01/31/20 00:00 98.1 F 84 16 113/70 97 Weight Weight 190 lb I&O: 01/30/20 01/31/20 02/01/20 06:59 06:59 06:59 Intake Total 1400 3260 Output Total 400 825 Balance 1000 2435 Result Diagrams: 01/31/20 04:00 01/31/20 04:00 Additional Labs: Accuchecks 01/31/20 01/30/20 01/30/20 05:44 19:59 17:03 POC Glucose 169 H 173 H 232 H Hospitalist ROS - Medication Medications: Active Medications Generic Name Dose Route Start Last Admin Trade Name Freq PRN Reason Stop Dose Admin Acetaminophen 650 mg 01/30/20 11:43 01/30/20 21:02 Acetaminophen 325 Mg Tab PO 650 mg Q4H PRN Administration Headache/Fever or Pain Ascorbic Acid 500 mg 01/31/20 09:00 01/31/20 08:52 Ascorbic Acid 500 Mg Chewable Tablet PO 500 mg DAILY NAMRATA Administration Aspirin 81 mg 01/30/20 21:00 01/31/20 08:51 Aspirin 81 Mg Enteric Coated Tablet PO 81 mg BID NAMRATA Administration Atorvastatin Calcium 20 mg 01/30/20 21:00 01/30/20 19:59 Atorvastatin Calcium 20 Mg Tab PO 20 mg HS NAMRATA Administration Carvedilol 3.125 mg 01/30/20 17:00 01/31/20 08:52 Carvedilol 3.125 Mg Tab PO 3.125 mg BID-WM NAMRATA Administration Cholecalciferol 1,000 units 01/31/20 09:00 01/31/20 08:51 Cholecalciferol 1,000 Units (25 Mcg) Tab PO 1,000 units DAILY NAMRATA Administration Cyanocobalamin 1,000 mcg 01/31/20 09:00 01/31/20 08:51 Cyanocobalamin (Vitamin B-12) 1,000 Mcg Tab PO 1,000 mcg DAILY NAMRATA Administration Fentanyl 50 mcg 01/30/20 11:32 01/30/20 22:45 Fentanyl 100 Mcg/2 Ml Vial IV 50 mcg Q1H PRN Administration Breakthrough Pain Ferrous Gluconate 324 mg 01/30/20 21:00 01/31/20 08:51 Ferrous Gluconate 324 Mg Tab PO 324 mg BID NAMRATA Administration Levofloxacin 500 mg/ Device 100 mls @ 100 mls/hr 01/29/20 16:00 01/30/20 15:43 IVPB 100 mls Q24HR NAMRATA Administration Vancomycin HCl 1.5 gm/ Device 300 mls @ 200 mls/hr 01/29/20 17:00 01/31/20 05:08 IVPB 300 mls 0500,1700 NAMRATA Administration Sodium Chloride 1,000 mls @ 100 mls/hr 01/30/20 11:45 01/31/20 05:08 Normal Saline 0.9% IV 1,000 mls .Q10H NAMRATA Administration Insulin Human Lispro 0 units 01/30/20 16:24 01/31/20 06:04 Humalog 300 Units/3 Ml Vial SC 2 units .MILD SLIDING SCALE PRN Administration Mild Correctional Scale Iron/Minerals/Multivitamins 1 tab 01/31/20 09:00 01/31/20 08:51 Multivitamin W/ Minerals 1 Tab PO 1 tab DAILY NAMRATA Administration Ketorolac Tromethamine 15 mg 01/30/20 11:45 01/31/20 09:02 Ketorolac Tromethamine 30 Mg/Ml Vial IVP 02/02/20 11:46 15 mg Q6H PRN Administration Moderate Pain (4-6) Levothyroxine Sodium 150 mcg 01/31/20 06:00 01/31/20 05:03 Levothyroxine 150 Mcg Tab PO 150 mcg 0600 NAMRATA Administration Metformin HCl 500 mg 01/30/20 15:00 01/31/20 08:52 Metformin 500 Mg Tab PO 500 mg TID NAMRATA Administration Oxycodone/Acetaminophen 2 tab 01/30/20 13:00 01/31/20 10:31 Oxycodone/Acetaminophen 5 Mg/325 Mg Tablet PO 2 tab Q4H PRN Administration Severe Pain (7-10) Senna/Docusate Sodium 2 tab 01/30/20 21:00 01/31/20 08:50 Senokot S 8.6-50 Mg Tab PO 2 tab BID NAMRATA Administration Sodium Chloride 10 ml 01/29/20 21:00 01/31/20 08:53 Flush - Normal Saline 10 Ml Syringe IVF 10 ml Q12HR NAMRATA Administration Sulfasalazine 1,000 mg 01/30/20 21:00 01/31/20 08:50 Sulfasalazine 500 Mg Tab PO 1,000 mg BID NAMRATA Administration - Exam General Appearance: awake alert Eye: PERRL, anicteric sclera ENT: no oropharyngeal lesions, moist mucosa Neck: supple, no JVD Heart: RRR, no murmur Respiratory: no wheezes, no rales Gastrointestinal: soft, non-tender, non-distended, normal bowel sounds Extremities: no cyanosis, no edema Neurological: cranial nerve grossly intact, no focal deficits Psychiatric: normal affect, A&O x 3 Hosp A/P (1) Septic arthritis of knee, left Code(s): M00.9 - PYOGENIC ARTHRITIS, UNSPECIFIED Status: Acute Qualifiers: Septic arthritis organism: staphylococcal Qualified Code(s): M00.062 - Staphylococcal arthritis, left knee (2) Status post revision of total replacement of left knee Code(s): Z96.652 - PRESENCE OF LEFT ARTIFICIAL KNEE JOINT Status: Acute (3) CAD (coronary artery disease) Code(s): I25.10 - ATHSCL HEART DISEASE OF [place] CORONARY ARTERY W/O ANG PCTRS Status: Chronic Qualifiers: Coronary Disease-Associated Artery/Lesion type: [place] artery [place] vs. transplanted heart: [place] heart Associated angina: without angina Qualified Code(s): I25.10 - Atherosclerotic heart disease of [place] coronary artery without angina pectoris (4) Hypothyroidism Code(s): E03.9 - HYPOTHYROIDISM, UNSPECIFIED Status: Chronic Qualifiers: Hypothyroidism type: unspecified Qualified Code(s): E03.9 - Hypothyroidism, unspecified (5) Rheumatoid arthritis Code(s): M06.9 - RHEUMATOID ARTHRITIS, UNSPECIFIED Status: Chronic Qualifiers: Rheumatoid arthritis location: unspecified site (6) DM type 2 (diabetes mellitus, type 2) Status: Chronic Qualifiers: Diabetes mellitus wood chopper insulin use: without wood chopper use - Plan is on levaquin and vanc, await full culture results she got her PICC line today will need rehab/skilled placement (lives alone and has difficulty mobilizing with current requirement of antibiotics as well) continue home dose of metformin, synthroid, doxepin, lipitor, coreg, iron and asp bid hemostable
--- NOTE | 2020-01-31 12:09 | SPC ---
Left upper extremity PICC placement sonographic guided HISTORY: Osteomyelitis. FINDINGS: After explaining the procedure and answering all questions, the left upper extremity was pr epped and draped in usual sterile fashion. Sterile technique, buffered local anesthesia, sonographic guidance, and a 22-gauge needle were used t o carefully access the left basilic vein. Standard technique was used to place the tip of a 5 [place] single lumen PICC so that the tip lies at the level of the superior vena cava. Catheter was flushed and secured externally. Patient tolerated the procedure well and was returned in unchanged condition. Fluoroscopy time 0.27 minutes. IMPRESSION : Left extremity PICC is ready for use.
[2020-01-31] MEDS ORDERED: diphenhydrAMINE 25 MG CAP PO PRN (15:58)
[2020-01-31] MEDS: traMADol HCl 50 MG TAB PO PRN (21:14)
[2020-01-31] MEDS: Atorvastatin Calcium 20 MG TAB PO SCH (21:15)
[2020-02-01] MEDS: Vancomycin 1.5 GRAM/300 ML BAG 1.5 GM in Premix Bag 1 BAG IVPB SCH (05:08)
[2020-02-01] MEDS: Levothyroxine 150 MCG TAB PO SCH (05:08)
[2020-02-01 05:36] LABS: Hemoglobin 12.2 g/dL (12.0-16.0); Mean Corpuscular HGB CONC 33.5 g/dL (32.0-36.0); Mean Corpuscular Hemoglobin 34.2 pg (27.0-31.0); Mean Platelet Volume 7.1 fL (7.4-10.4); Platelet Count 167 thou/uL (130-400); RBC Distribution Width 12.6 % (11.5-14.5); Red Blood Cell (RBC) Count 3.59 mill/uL (4.20-5.40); White Blood Cell (WBC) Count 5.5 thou/uL (4.8-10.8)
[2020-02-01] MEDS: Ondansetron PF 4 MG/2 ML Vial IVP PRN (05:43)
[2020-02-01] MEDS: Sodium Chloride 0.9% 1,000 ML IV SCH ×2 (05:59→15:08)
[2020-02-01] MEDS: sulfaSALAzine 500 MG TAB PO SCH ×2 (10:01→21:05)
[2020-02-01] MEDS: oxyCODONE/Acetaminophen 5 mg/325 mg Tablet PO PRN ×3 (10:02→21:11)
[2020-02-01] MEDS: Cyanocobalamin (Vitamin B-12) 1,000 MCG TAB PO SCH (10:03)
[2020-02-01] MEDS: Carvedilol 3.125 MG TAB PO SCH ×2 (10:03→17:53)
[2020-02-01] MEDS: Ferrous Gluconate 324 MG TAB PO SCH ×2 (10:03→21:04)
[2020-02-01] MEDS: Multivitamin W/ Minerals 1 TAB PO SCH (10:03)
[2020-02-01] MEDS: Aspirin 81 mg Enteric Coated Tablet PO SCH ×2 (10:03→21:05)
[2020-02-01] MEDS: Ascorbic Acid 500 mg Chewable Tablet PO SCH (10:03)
[2020-02-01] MEDS: Senokot S 8.6-50 MG TAB PO SCH ×2 (10:03→21:04)
[2020-02-01] MEDS: metFORMIN 500 MG TAB PO SCH ×3 (10:03→21:04)
[2020-02-01] MEDS: Cholecalciferol 1,000 UNITS (25 MCG) TAB PO SCH (10:04)
--- NOTE | 2020-02-01 11:33 | PDOC.HOSPP ---
- Subjective Encounter Date: 02/01/20 Encounter Time: 10:30 Subjective: no complaints is ambulating with PT has pain in her right knee - Objective Vital Signs & Weight: Vital Signs (12 hours) Temp Pulse Resp BP Pulse Ox 02/01/20 07:29 98.8 F 74 18 126/76 93 L Weight Weight 190 lb I&O: 01/31/20 02/01/20 02/02/20 06:59 06:59 06:59 Intake Total 3260 2240 Output Total 825 1125 Balance 2435 1115 Result Diagrams: 02/01/20 04:57 01/31/20 04:00 Additional Labs: Accuchecks 02/01/20 02/01/20 01/31/20 11:02 06:34 15:43 POC Glucose 169 H 151 H 143 H 01/31/20 12:11 POC Glucose 156 H Hospitalist ROS - Medication Medications: Active Medications Generic Name Dose Route Start Last Admin Trade Name Freq PRN Reason Stop Dose Admin Acetaminophen 650 mg 01/30/20 11:43 01/30/20 21:02 Acetaminophen 325 Mg Tab PO 650 mg Q4H PRN Administration Headache/Fever or Pain Ascorbic Acid 500 mg 01/31/20 09:00 02/01/20 10:03 Ascorbic Acid 500 Mg Chewable Tablet PO 500 mg DAILY NAMRATA Administration Aspirin 81 mg 01/30/20 21:00 02/01/20 10:03 Aspirin 81 Mg Enteric Coated Tablet PO 81 mg BID NAMRATA Administration Atorvastatin Calcium 20 mg 01/30/20 21:00 01/31/20 21:15 Atorvastatin Calcium 20 Mg Tab PO 20 mg HS NAMRATA Administration Carvedilol 3.125 mg 01/30/20 17:00 02/01/20 10:03 Carvedilol 3.125 Mg Tab PO 3.125 mg BID-WM NAMRATA Administration Cholecalciferol 1,000 units 01/31/20 09:00 02/01/20 10:04 Cholecalciferol 1,000 Units (25 Mcg) Tab PO 1,000 units DAILY NAMRATA Administration Cyanocobalamin 1,000 mcg 01/31/20 09:00 02/01/20 10:03 Cyanocobalamin (Vitamin B-12) 1,000 Mcg Tab PO 1,000 mcg DAILY NAMRATA Administration Diphenhydramine HCl 25 mg 01/30/20 11:43 01/31/20 16:08 Diphenhydramine 25 Mg Cap PO 25 mg Q6H PRN Administration Itching Diphenhydramine HCl 25 mg 01/31/20 15:58 01/31/20 21:14 Diphenhydramine 25 Mg Cap PO 25 mg Q4H PRN Administration Itching & Insomnia Fentanyl 50 mcg 01/30/20 11:32 01/30/20 22:45 Fentanyl 100 Mcg/2 Ml Vial IV 50 mcg Q1H PRN Administration Breakthrough Pain Ferrous Gluconate 324 mg 01/30/20 21:00 02/01/20 10:03 Ferrous Gluconate 324 Mg Tab PO 324 mg BID NAMRATA Administration Levofloxacin 500 mg/ Device 100 mls @ 100 mls/hr 01/29/20 16:00 01/31/20 16:09 IVPB 100 mls Q24HR NAMRATA Administration Vancomycin HCl 1.5 gm/ Device 300 mls @ 200 mls/hr 01/29/20 17:00 02/01/20 05:08 IVPB 300 mls 0500,1700 NAMRATA Administration Ropivacaine 250 ml/ Device 250 mls @ 6 mls/hr 01/30/20 11:45 02/01/20 05:08 NERVE BLCK 02/02/20 11:44 250 mls INF NAMRATA Administration As Directed Sodium Chloride 1,000 mls @ 100 mls/hr 01/30/20 11:45 02/01/20 05:59 Normal Saline 0.9% IV Not Given .Q10H NAMRATA Insulin Human Lispro 0 units 01/30/20 16:24 01/31/20 12:43 Humalog 300 Units/3 Ml Vial SC 2 units .MILD SLIDING SCALE PRN Administration Mild Correctional Scale Iron/Minerals/Multivitamins 1 tab 01/31/20 09:00 02/01/20 10:03 Multivitamin W/ Minerals 1 Tab PO 1 tab DAILY NAMRATA Administration Ketorolac Tromethamine 15 mg 01/30/20 11:45 01/31/20 17:58 Ketorolac Tromethamine 30 Mg/Ml Vial IVP 02/02/20 11:46 15 mg Q6H PRN Administration Moderate Pain (4-6) Levothyroxine Sodium 150 mcg 01/31/20 06:00 02/01/20 05:08 Levothyroxine 150 Mcg Tab PO 150 mcg 0600 NAMRATA Administration Metformin HCl 500 mg 01/30/20 15:00 02/01/20 10:03 Metformin 500 Mg Tab PO 500 mg TID NAMRATA Administration Ondansetron HCl 4 mg 01/30/20 11:43 02/01/20 05:43 Ondansetron Pf 4 Mg/2 Ml Vial IVP 4 mg Q6H PRN Administration Nausea/Vomiting Oxycodone/Acetaminophen 2 tab 01/30/20 13:00 02/01/20 10:02 Oxycodone/Acetaminophen 5 Mg/325 Mg Tablet PO 2 tab Q4H PRN Administration Severe Pain (7-10) Senna/Docusate Sodium 2 tab 01/30/20 21:00 02/01/20 10:03 Senokot S 8.6-50 Mg Tab PO 2 tab BID NAMRATA Administration Sodium Chloride 10 ml 01/29/20 21:00 02/01/20 10:09 Flush - Normal Saline 10 Ml Syringe IVF Not Given Q12HR NAMRATA Sulfasalazine 1,000 mg 01/30/20 21:00 02/01/20 10:01 Sulfasalazine 500 Mg Tab PO 1,000 mg BID NAMRATA Administration Tramadol HCl 100 mg 01/30/20 11:45 01/31/20 21:14 Tramadol Hcl 50 Mg Tab PO 100 mg Q6H PRN Administration Moderate Pain 4-6 - Exam General Appearance: awake alert Eye: PERRL, anicteric sclera ENT: no oropharyngeal lesions, moist mucosa Neck: supple, no JVD Heart: RRR, no murmur Respiratory: no wheezes, no rales Gastrointestinal: soft, non-tender, non-distended, normal bowel sounds Extremities: no cyanosis Neurological: cranial nerve grossly intact, no focal deficits Psychiatric: normal affect, A&O x 3 Hosp A/P (1) Septic arthritis of knee, right Code(s): M00.9 - PYOGENIC ARTHRITIS, UNSPECIFIED Status: Acute Qualifiers: Septic arthritis organism: staphylococcal Qualified Code(s): M00.061 - Staphylococcal arthritis, right knee (2) CAD (coronary artery disease) Code(s): I25.10 - ATHSCL HEART DISEASE OF [place] CORONARY ARTERY W/O ANG PCTRS Status: Chronic Qualifiers: Coronary Disease-Associated Artery/Lesion type: [place] artery [place] vs. transplanted heart: [place] heart Associated angina: without angina Qualified Code(s): I25.10 - Atherosclerotic heart disease of [place] coronary artery without angina pectoris (3) Hypothyroidism Code(s): E03.9 - HYPOTHYROIDISM, UNSPECIFIED Status: Chronic Qualifiers: Hypothyroidism type: unspecified Qualified Code(s): E03.9 - Hypothyroidism, unspecified (4) Rheumatoid arthritis Code(s): M06.9 - RHEUMATOID ARTHRITIS, UNSPECIFIED Status: Chronic Qualifiers: Rheumatoid arthritis location: unspecified site (5) DM type 2 (diabetes mellitus, type 2) Status: Chronic Qualifiers: Diabetes mellitus long term care social worker insulin use: without long term care social worker use - Plan is on levaquin and vanc, await ID opinion on final antibiotic choice for outpt use. has PICC line (01/31/20) will need rehab/skilled placement (lives alone and has difficulty mobilizing with current requirement of antibiotics as well) continue home dose of metformin, synthroid, doxepin, lipitor, coreg, iron and asp bid hemostable
--- NOTE | 2020-02-01 15:07 | PRG ---
DATE OF SERVICE: 02/01/2020 SUBJECTIVE: Ms. Morales is feeling better except for pain in the right knee area. No respiratory symptoms or abdominal pain. No diarrhea. OBJECTIVE: VITAL SIGNS: Showed a T-max of 99.9, blood pressure 130/70, heart rate 78, respiratory rate 18, and O2 saturation 97% on room air. GENERAL: The patient is alert, in no distress. LUNGS: Clear. HEART: S1 and S2, regular rate. ABDOMEN: Soft. Not distended or tender. LABORATORY DATA: White cell count 5.5, hemoglobin 12.2, and platelets 167. Creatinine is 0.66 from yesterday. The patient had a PICC line placed. Microbiology with Staph aureus from the knee aspirate, this is a methicillin-sensitive Staphylococcus aureus. 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 The management has been conservative with a liner exchange and washout, and we will go ahead and switch her to cefazolin with rifampin, treat for 6 weeks, and then Keflex, rifampin for another 3 months, and then suppressive Keflex indefinitely. Job ID: [id number]
[2020-02-01] MEDS: Atorvastatin Calcium 20 MG TAB PO SCH (21:04)
[2020-02-01] MEDS: CEFAZOLIN 2 GM in Premix Bag 1 BAG IVPB SCH (21:09)
[2020-02-01] MEDS: Rifampin 300 MG CAP PO SCH (21:11)
[2020-02-02] MEDS: Sodium Chloride 0.9% 1,000 ML IV SCH ×3 (01:28→18:23)
[2020-02-02] MEDS: oxyCODONE/Acetaminophen 5 mg/325 mg Tablet PO PRN ×4 (03:00→21:07)
[2020-02-02] MEDS: CEFAZOLIN 2 GM in Premix Bag 1 BAG IVPB SCH ×3 (05:34→21:07)
[2020-02-02] MEDS: Levothyroxine 150 MCG TAB PO SCH (05:34)
[2020-02-02] MEDS: Aspirin 81 mg Enteric Coated Tablet PO SCH ×2 (09:56→19:52)
[2020-02-02] MEDS: Multivitamin W/ Minerals 1 TAB PO SCH (09:56)
[2020-02-02] MEDS: Ferrous Gluconate 324 MG TAB PO SCH ×2 (09:56→19:52)
[2020-02-02] MEDS: Senokot S 8.6-50 MG TAB PO SCH ×2 (09:56→19:52)
[2020-02-02] MEDS: metFORMIN 500 MG TAB PO SCH ×3 (09:56→19:53)
[2020-02-02] MEDS: Rifampin 300 MG CAP PO SCH ×2 (09:56→21:08)
[2020-02-02] MEDS: sulfaSALAzine 500 MG TAB PO SCH ×2 (09:56→19:52)
[2020-02-02] MEDS: Cyanocobalamin (Vitamin B-12) 1,000 MCG TAB PO SCH (09:56)
[2020-02-02] MEDS: Ascorbic Acid 500 mg Chewable Tablet PO SCH (09:57)
[2020-02-02] MEDS: Cholecalciferol 1,000 UNITS (25 MCG) TAB PO SCH (09:57)
[2020-02-02] MEDS: Carvedilol 3.125 MG TAB PO SCH ×2 (09:57→18:19)
--- NOTE | 2020-02-02 11:51 | PDOC.HOSPP ---
- Subjective Encounter Date: 02/02/20 Encounter Time: 10:45 Subjective: slept well last night right knee pain is better she ambulated better yesterday didn't like her breakfast this morning - Objective Vital Signs & Weight: Vital Signs (12 hours) Temp Pulse Resp BP Pulse Ox 02/02/20 11:40 97.5 F L 70 16 125/80 95 02/02/20 07:09 98.2 F 75 16 131/78 94 L 02/02/20 05:00 99.1 F 76 16 130/72 95 02/02/20 00:00 98.5 F 73 16 125/73 96 Weight Weight 190 lb I&O: 02/01/20 02/02/20 02/03/20 06:59 06:59 06:59 Intake Total 2240 1999 Output Total 1120 2650 Balance 1115 -650 Result Diagrams: 02/01/20 04:57 01/31/20 04:00 Additional Labs: Accuchecks 02/02/20 02/02/20 02/01/20 11:48 05:33 21:31 POC Glucose 132 H 134 H 124 H 02/01/20 15:11 POC Glucose 112 H Hospitalist ROS - Medication Medications: Active Medications Generic Name Dose Route Start Last Admin Trade Name Freq PRN Reason Stop Dose Admin Acetaminophen 650 mg 01/30/20 11:43 01/30/20 21:02 Acetaminophen 325 Mg Tab PO 650 mg Q4H PRN Administration Headache/Fever or Pain Ascorbic Acid 500 mg 01/31/20 09:00 02/02/20 09:57 Ascorbic Acid 500 Mg Chewable Tablet PO 500 mg DAILY NAMRATA Administration Aspirin 81 mg 01/30/20 21:00 02/02/20 09:56 Aspirin 81 Mg Enteric Coated Tablet PO 81 mg BID NAMRATA Administration Atorvastatin Calcium 20 mg 01/30/20 21:00 02/01/20 21:04 Atorvastatin Calcium 20 Mg Tab PO 20 mg HS NAMRATA Administration Carvedilol 3.125 mg 01/30/20 17:00 02/02/20 09:57 Carvedilol 3.125 Mg Tab PO 3.125 mg BID-WM NAMRATA Administration Cholecalciferol 1,000 units 01/31/20 09:00 02/02/20 09:57 Cholecalciferol 1,000 Units (25 Mcg) Tab PO 1,000 units DAILY NAMRATA Administration Cyanocobalamin 1,000 mcg 01/31/20 09:00 02/02/20 09:56 Cyanocobalamin (Vitamin B-12) 1,000 Mcg Tab PO 1,000 mcg DAILY NAMRATA Administration Diphenhydramine HCl 25 mg 01/30/20 11:43 01/31/20 16:08 Diphenhydramine 25 Mg Cap PO 25 mg Q6H PRN Administration Itching Diphenhydramine HCl 25 mg 01/31/20 15:58 01/31/20 21:14 Diphenhydramine 25 Mg Cap PO 25 mg Q4H PRN Administration Itching & Insomnia Fentanyl 50 mcg 01/30/20 11:32 01/30/20 22:45 Fentanyl 100 Mcg/2 Ml Vial IV 50 mcg Q1H PRN Administration Breakthrough Pain Ferrous Gluconate 324 mg 01/30/20 21:00 02/02/20 09:56 Ferrous Gluconate 324 Mg Tab PO 324 mg BID NAMRATA Administration Sodium Chloride 1,000 mls @ 100 mls/hr 01/30/20 11:45 02/02/20 11:09 Normal Saline 0.9% IV Not Given .Q10H NAMRATA Cefazolin Sodium/Dextrose 2 gm 50 mls @ 100 mls/hr 02/01/20 22:00 02/02/20 05:34 / Device IVPB 50 mls Q8HR NAMRATA Administration Insulin Human Lispro 0 units 01/30/20 16:24 01/31/20 12:43 Humalog 300 Units/3 Ml Vial SC 2 units .MILD SLIDING SCALE PRN Administration Mild Correctional Scale Iron/Minerals/Multivitamins 1 tab 01/31/20 09:00 02/02/20 09:56 Multivitamin W/ Minerals 1 Tab PO 1 tab DAILY NAMRATA Administration Levothyroxine Sodium 150 mcg 01/31/20 06:00 02/02/20 05:34 Levothyroxine 150 Mcg Tab PO 150 mcg 0600 NAMRATA Administration Metformin HCl 500 mg 01/30/20 15:00 02/02/20 09:56 Metformin 500 Mg Tab PO 500 mg TID NAMRATA Administration Ondansetron HCl 4 mg 01/30/20 11:43 02/01/20 05:43 Ondansetron Pf 4 Mg/2 Ml Vial IVP 4 mg Q6H PRN Administration Nausea/Vomiting Oxycodone/Acetaminophen 2 tab 01/30/20 13:00 02/02/20 09:58 Oxycodone/Acetaminophen 5 Mg/325 Mg Tablet PO 2 tab Q4H PRN Administration Severe Pain (7-10) Rifampin 300 mg 02/01/20 22:00 02/02/20 09:56 Rifampin 300 Mg Cap PO 300 mg 1000,2200 NAMRATA Administration Senna/Docusate Sodium 2 tab 01/30/20 21:00 02/02/20 09:56 Senokot S 8.6-50 Mg Tab PO 2 tab BID NAMRATA Administration Sodium Chloride 10 ml 01/29/20 21:00 02/02/20 09:57 Flush - Normal Saline 10 Ml Syringe IVF 10 ml Q12HR NAMRATA Administration Sulfasalazine 1,000 mg 01/30/20 21:00 02/02/20 09:56 Sulfasalazine 500 Mg Tab PO 1,000 mg BID NAMRATA Administration Tramadol HCl 100 mg 01/30/20 11:45 01/31/20 21:14 Tramadol Hcl 50 Mg Tab PO 100 mg Q6H PRN Administration Moderate Pain 4-6 - Exam General Appearance: awake alert Eye: PERRL, anicteric sclera ENT: no oropharyngeal lesions, moist mucosa Neck: supple, no JVD Heart: RRR, no murmur Respiratory: no wheezes, no rales Gastrointestinal: soft, non-tender, non-distended, normal bowel sounds Extremities: no cyanosis, no edema Extremities - other findings: right knee dressing looks clean Neurological: cranial nerve grossly intact, no focal deficits Psychiatric: normal affect, A&O x 3 Hosp A/P (1) Septic arthritis of knee, right Code(s): M00.9 - PYOGENIC ARTHRITIS, UNSPECIFIED Status: Acute Qualifiers: Septic arthritis organism: staphylococcal Qualified Code(s): M00.061 - Staphylococcal arthritis, right knee (2) CAD (coronary artery disease) Code(s): I25.10 - ATHSCL HEART DISEASE OF [place] CORONARY ARTERY W/O ANG PCTRS Status: Chronic Qualifiers: Coronary Disease-Associated Artery/Lesion type: [place] artery [place] vs. tr ansplanted heart: [place] heart Associated angina: without angina Qualified Code(s): I25.10 - Atherosclerotic heart disease of [place] coronary artery without angina pectoris (3) Hypothyroidism Code(s): E03.9 - HYPOTHYROIDISM, UNSPECIFIED Status: Chronic Qualifiers: Hypothyroidism type: unspecified Qualified Code(s): E03.9 - Hypothyroidism, unspecified (4) Rheumatoid arthritis Code(s): M06.9 - RHEUMATOID ARTHRITIS, UNSPECIFIED Status: Chronic Qualifiers: Rheumatoid arthritis location: unspecified site (5) DM type 2 (diabetes mellitus, type 2) Status: Chronic Qualifiers: Diabetes mellitus long term acute care registered nurse insulin use: without usp use - Plan is on cefazolin and rifampin now, to be continued for 6 weeks then keflex and rifampin for 3 months then oral keflex suppressive regimen indefinitely per ID. has PICC line (01/31/20) will need rehab/skilled placement (lives alone and has difficulty mobilizing w ith current requirement of antibiotics as well) continue home dose of metformin, synthroid, doxepin, lipitor, coreg, iron and asp bid hemostable awaiting placement, may dc if its ready.
[2020-02-02] MEDS: Atorvastatin Calcium 20 MG TAB PO SCH (19:53)
[2020-02-03] MEDS: traMADol HCl 50 MG TAB PO PRN ×2 (00:29→08:43)
[2020-02-03] MEDS: oxyCODONE/Acetaminophen 5 mg/325 mg Tablet PO PRN ×4 (01:31→16:46)
[2020-02-03] MEDS: Levothyroxine 150 MCG TAB PO SCH (05:37)
[2020-02-03] MEDS: Sodium Chloride 0.9% 1,000 ML IV SCH ×2 (05:37→14:55)
[2020-02-03] MEDS: CEFAZOLIN 2 GM in Premix Bag 1 BAG IVPB SCH ×2 (05:38→14:19)
[2020-02-03] MEDS: Senokot S 8.6-50 MG TAB PO SCH (08:36)
[2020-02-03] MEDS: Carvedilol 3.125 MG TAB PO SCH ×2 (08:36→16:16)
[2020-02-03] MEDS: Multivitamin W/ Minerals 1 TAB PO SCH (08:36)
[2020-02-03] MEDS: metFORMIN 500 MG TAB PO SCH ×2 (08:36→14:19)
[2020-02-03] MEDS: sulfaSALAzine 500 MG TAB PO SCH (08:36)
[2020-02-03] MEDS: Aspirin 81 mg Enteric Coated Tablet PO SCH (08:36)
[2020-02-03] MEDS: Ferrous Gluconate 324 MG TAB PO SCH (08:36)
[2020-02-03] MEDS: Ascorbic Acid 500 mg Chewable Tablet PO SCH (08:37)
[2020-02-03] MEDS: Cholecalciferol 1,000 UNITS (25 MCG) TAB PO SCH (08:37)
[2020-02-03] MEDS: Cyanocobalamin (Vitamin B-12) 1,000 MCG TAB PO SCH (08:37)
[2020-02-03] MEDS: Rifampin 300 MG CAP PO SCH (09:05)
--- NOTE | 2020-02-03 09:43 | PRG ---
DATE OF SERVICE: 02/03/2020 SUBJECTIVE: Lashawn is a 79-year-old female, postoperative day 4 from irrigation, debridement, and poly swab of an acutely infected right total knee arthroplasty with methicillin-resistant Staph aureus. Dr. Garcia consulted on the patient on Monday and she has received a PICC line, continues to receive vancomycin. She is feeling better. No fevers. OBJECTIVE: VITAL SIGNS: Temperature 97.8, pulse 67, respiratory rate 18, O2 saturation is 93% on room air, and blood pressure 130/81. GENERAL: She is alert and oriented to person, place, time, and situation. Responsive and appropriate with examiner. Conversive. EXTREMITIES: Visual inspection of the right knee demonstrates her incision to be clean. There is no strike through and no drainage and she is neurovascularly intact in the right lower extremity. LABORATORY DATA: White blood cell count is 5.5, hemoglobin 12.2, and hematocrit 36.6. Final culture demonstrates Staph aureus, resistant to amoxicillin and piperacillin, otherwise pansensitive. IMPRESSION: Methicillin-resistant Staph aureus, septic right total knee arthroplasty, postoperative day 4 in a 79-year-old female. PLAN: Continue to follow. Continue IV antibiotics. She will require probably 6 to 8 weeks of IV antibiotics. Give consideration of discharge once final drugs are selected. Job ID: [id number]
[2020-02-03] MEDS: Ondansetron PF 4 MG/2 ML Vial IVP PRN ×2 (10:49→17:31)
[2020-02-03 15:23] VITALS: BP 117/64; TEMP 98.3
== END 2020-02-03 17:48 | DRG 467 ==
LOC: SURG A 14:50
PROVIDERS: ADMIT Orthopaedic Surgery; ATTEND Orthopaedic Surgery
PROC: 0SRV0JZ Replacement of Right Knee Joint, Tibial Surface with Synthetic Substitute, Open Approach (ICD-10-PCS; 2020-01-30)
PROC: 0SPV0JZ Removal of Synthetic Substitute from Right Knee Joint, Tibial Surface, Open Approach (ICD-10-PCS; 2020-01-30)
PROC: 02HV33Z Insertion of Infusion Device into Superior Vena Cava, Percutaneous Approach (ICD-10-PCS; principal; 2020-01-31)
PROC: B548ZZA Ultrasonography of Superior Vena Cava, Guidance (ICD-10-PCS; 2020-01-31)
DX: T84.53XA Infection and inflammatory reaction due to internal right knee prosthesis, initial encounter (principal); E87.1 Hypo-osmolality and hyponatremia; M00.061 Staphylococcal arthritis, right knee; Y83.9 Surgical procedure, unspecified as the cause of abnormal reaction of the patient, or of later complication, without mention of misadventure at the time of the procedure; I25.10 Atherosclerotic heart disease of native coronary artery without angina pectoris; E03.9 Hypothyroidism, unspecified; E11.9 Type 2 diabetes mellitus without complications; M06.9 Rheumatoid arthritis, unspecified; E78.5 Hyperlipidemia, unspecified; Z90.49 Acquired absence of other specified parts of digestive tract; Z90.710 Acquired absence of both cervix and uterus; Z88.0 Allergy status to penicillin; Z91.013 Allergy to seafood; I25.2 Old myocardial infarction; Z88.8 Allergy status to other drugs, medicaments and biological substances
CPT/HCPCS: 36415; 36416; 36569; 80048; 80202; 81001; 85025; 85027; 87070; 87077; 87186; 87205; 87635; C1776; J0690; J1644; J1885; J1956; J2250; J2405; J2704; J2795; J3010; J3370; Q0163; S0020; U0002; U0003

== ENCOUNTER 2020-05-19 13:12 | Emergency (ER) | payer MEDICARE ==
--- NOTE | 2020-05-19 13:58 | CT ---
Exam: CT brain PROVIDED CLINICAL HISTORY: Dizziness COMPARISON: None FINDINGS: The ventricular system is normal in size and morphology. No evidence for intracranial hemorrhage or mass effect. The extracranial soft tissues and osseous structures demonstrate no evidence for an acute abnormality. IMPRESSION: No evidence for intracranial hemorrhage or mass effect.
--- NOTE | 2020-05-19 14:04 | RAD ---
EXAM: XR Pelvis AP STANDARD PROVIDED CLINICAL HISTORY: Pain FINDINGS: There is no evidence for fracture or other acute osseous abnormality. Alignment appears anatomic. Clarice nt spaces appear preserved. IMPRESSION: No evidence for an acute osseous abnormality. If there is persistent clinical concern, conservative m anagement and follow-up imaging advised.
--- NOTE | 2020-05-19 14:04 | RAD ---
EXAM: XR Hip Lt 2-3 View PROVIDED CLINICAL HISTORY: Pain FINDINGS: There is no evidence for fracture or other acute osseous abnormality. Alignment appears anatomic. Clarice nt spaces appear preserved. IMPRESSION: No evidence for an acute osseous abnormality. If there is persistent clinical concern, conservative m anagement and follow-up imaging advised.
[2020-05-19 14:36] LABS: #Basophils 0.1 thou/uL (0.0-0.2); #Eosinphils 0.2 thou/uL (0.0-0.7); #Lymphocytes 1.8 thou/uL (1.20-3.40); #Monocytes 0.3 thou/uL (0.11-0.59); #Neutrophils 3.1 thou/uL (1.40-6.50); %Basophils 1.4 % (0.0-1.0); %Eosinophils 3.5 % (0.0-10.0); %Lymphocytes 32.2 % (21.0-51.0); %Monocytes 5.9 % (0.0-10.0); Hemoglobin 14.1 g/dL (12.0-16.0); Mean Corpuscular HGB CONC 33.6 g/dL (32.0-36.0); Mean Corpuscular Hemoglobin 33.5 pg (27.0-31.0); Mean Corpuscular Volume 99.9 fL (78.0-98.0); Mean Platelet Volume 6.9 fL (7.4-10.4); Platelet Count 240 thou/uL (130-400); Red Blood Cell (RBC) Count 4.22 mill/uL (4.20-5.40); White Blood Cell (WBC) Count 5.5 thou/uL (4.8-10.8)
[2020-05-19 14:53] LABS: Clarity Clear (Clear); Glucose, Urine (Dipstick) Negative (Negative); Ketone, Urine Negative (Negative); Leukocyte Negative Leu/uL (Negative); Nitrite Negative (Negative); Protein, Urine (Dipstick) Negative (Neg-Trace); Urobilinogen 0.2 mg/dL (Less than 2); pH, Urine 6.5 (5.0-9.0)
[2020-05-19] MEDS ORDERED: Acetaminophen 500 MG TAB ONE (14:53)
[2020-05-19 14:54] LABS: Bilirubin Negative (Negative); Blood, Urine Negative (Negative)
[2020-05-19 14:57] LABS: ALT (SGPT) 21 U/L (8-55); AST (SGOT) 28 U/L (5-34); Albumin 4.1 g/dL (3.4-4.8); Alkaline Phosphatase 81 U/L (40-110); Anion Gap 14 mmol/L (10-20); BUN (Urea Nitrogen) 10 mg/dL (9.8-20.1); Bilirubin, Total 0.3 mg/dL (0.2-1.2); Calc. Creatinine Clearance 0 mL/min (70-130); Calcium 9.4 mg/dL (7.8-10.44); Carbon Dioxide 29 mmol/L (23-31); Chloride 95 mmol/L (98-107); Globulin 3.5 g/dL (2.4-3.5); Glucose 122 mg/dL (83-110); Potassium 3.9 mmol/L (3.5-5.1); Protein, Total 7.6 g/dL (5.8-8.1); Sodium 134 mmol/L (136-145)
== END 2020-05-19 15:40 | disposition home or self-care (01) ==
LOC: ERS 13:12
DX: R42 Dizziness and giddiness (principal); M25.552 Pain in left hip; E11.9 Type 2 diabetes mellitus without complications; I25.2 Old myocardial infarction; F17.210 Nicotine dependence, cigarettes, uncomplicated; Z79.84 Long term (current) use of oral hypoglycemic drugs; Z79.899 Other long term (current) drug therapy
CPT/HCPCS: 36415; 70450; 72170; 80053; 81003; 84484; 85025; 93005

== ENCOUNTER 2020-06-18 14:40 | Emergency (ER) | payer MEDICARE ==
--- NOTE | 2020-06-18 15:46 | ULT ---
EXAM: Right lower extremity venous ultrasound HISTORY: Right lower extremity pain and edema COMPARISON: None TECHNIQUE: Multiplanar grayscale and color Doppler images were obtained in a right lower extremity ve nous ultrasound. Spectral analysis of the Doppler waveforms were performed. FINDINGS: The common femoral vein, profunda femoral vein, superficial femoral vein, and popliteal vei n are normal in appearance without visible thrombus. These vessels demonstrate normal compression, flow, and augmentation. The posterior tibial vein and greater saphenous vein are patent without evidence of thrombus. IMPRESSION: No evidence of DVT.
== END 2020-06-18 16:53 | disposition home or self-care (01) ==
LOC: ERS 14:40
DX: R60.0 Localized edema (principal); E11.9 Type 2 diabetes mellitus without complications; F17.210 Nicotine dependence, cigarettes, uncomplicated; Z79.84 Long term (current) use of oral hypoglycemic drugs; Z79.899 Other long term (current) drug therapy

== ENCOUNTER 2021-04-11 08:06 | Emergency (ER) | payer OTHER, MEDICARE ==
[2021-04-11] MEDS ORDERED: Lidocaine 4% Topical Sol 50 ML BOT ONE (08:45)
[2021-04-11] MEDS ORDERED: Lidocaine 1% w/Epinephrine 1:100K 20 ML VIAL ONE (08:48)
[2021-04-11] MEDS ORDERED: Bacitracin 1 PK ONE (09:03)
[2021-04-11 11:24] LABS: #Basophils 0.1 thou/uL (0.0-0.2); #Eosinphils 0.2 thou/uL (0.0-0.7); #Lymphocytes 1.5 thou/uL (1.20-3.40); #Monocytes 0.5 thou/uL (0.11-0.59); #Neutrophils 3.3 thou/uL (1.40-6.50); %Basophils 1.2 % (0.0-1.0); %Eosinophils 3.3 % (0.0-10.0); %Monocytes 9.5 % (0.0-10.0); Hemoglobin 14.1 g/dL (12.0-16.0); Mean Corpuscular HGB CONC 34.2 g/dL (32.0-36.0); Mean Corpuscular Hemoglobin 35.3 pg (27.0-31.0); Mean Platelet Volume 6.6 fL (7.4-10.4); Platelet Count 205 thou/uL (130-400); RBC Distribution Width 14.3 % (11.5-14.5); White Blood Cell (WBC) Count 5.6 thou/uL (4.8-10.8)
[2021-04-11 11:45] LABS: ALT (SGPT) 16 U/L (8-55); AST (SGOT) 23 U/L (5-34); Albumin 3.8 g/dL (3.4-4.8); Alkaline Phosphatase 76 U/L (40-110); Anion Gap 12 mmol/L (10-20); BUN (Urea Nitrogen) 13 mg/dL (9.8-20.1); Bilirubin, Total 0.5 mg/dL (0.2-1.2); CK (CPK) 427 U/L (29-168); Calc. Creatinine Clearance 0 mL/min (70-130); Carbon Dioxide 23 mmol/L (23-31); Chloride 102 mmol/L (98-107); Globulin 2.8 g/dL (2.4-3.5); Glucose 133 mg/dL (83-110); Potassium 3.8 mmol/L (3.5-5.1); Protein, Total 6.6 g/dL (5.8-8.1); Sodium 133 mmol/L (136-145)
[2021-04-11 12:39] LABS: Bacteria/HPF None Seen HPF (None Seen); Bilirubin Negative (Negative); Blood, Urine 3+ (Negative); Clarity Clear (Clear); Glucose, Urine (Dipstick) Greater than 1000 mg/dL (Negative); Ketone, Urine Negative (Negative); Leukocyte Negative Leu/uL (Negative); Nitrite Negative (Negative); Protein, Urine (Dipstick) Negative (Neg-Trace); RBC/HPF 0-3 HPF (0-3); Specific Gravity, Urine 1.015 (1.002-1.036); Squamous Epithelial 0-3 HPF (0-3); Urobilinogen Normal mg/dL (Less than 2); WBC/HPF 0-3 HPF (0-3); pH, Urine 6.5 (5.0-9.0)
== END 2021-04-11 14:15 | disposition home or self-care (01) ==
LOC: ERS 08:06
DX: S12.031A Nondisplaced posterior arch fracture of first cervical vertebra, initial encounter for closed fracture (principal); S01.81XA Laceration without foreign body of other part of head, initial encounter; E78.5 Hyperlipidemia, unspecified; E11.9 Type 2 diabetes mellitus without complications; I25.2 Old myocardial infarction; F17.210 Nicotine dependence, cigarettes, uncomplicated; Z79.899 Other long term (current) drug therapy; W01.0XXA Fall on same level from slipping, tripping and stumbling without subsequent striking against object, initial encounter
CPT/HCPCS: 12013; 36415; 70450; 72125; 80053; 81003; 81015; 82550; 84443; 85025; 93005

== ENCOUNTER 2021-04-16 11:19 | Emergency (ER) | payer MEDICARE | END 2021-04-16 13:10 | disposition home or self-care (01) | LOC: ERS 11:19 | DX: Z48.02 Encounter for removal of sutures (principal); I25.2 Old myocardial infarction; E11.9 Type 2 diabetes mellitus without complications; E78.5 Hyperlipidemia, unspecified; F17.210 Nicotine dependence, cigarettes, uncomplicated; Z79.899 Other long term (current) drug therapy ==

== ENCOUNTER 2021-05-25 11:34 | Outpatient (CLI) | payer MEDICARE | END 2021-05-25 11:35 | disposition home or self-care (01) | LOC: BICRAD 11:34 | PROVIDERS: ATTEND Surgery | DX: S12.000D Unspecified displaced fracture of first cervical vertebra, subsequent encounter for fracture with routine healing (principal) | CPT/HCPCS: 72040 ==

== ENCOUNTER 2021-06-17 12:30 | Outpatient (CLI) | payer MEDICARE | END 2021-06-17 12:31 | disposition home or self-care (01) | LOC: BICCT 12:30 | PROVIDERS: ATTEND Surgery | DX: S12.9XXD Fracture of neck, unspecified, subsequent encounter (principal); M47.812 Spondylosis without myelopathy or radiculopathy, cervical region; R91.1 Solitary pulmonary nodule | CPT/HCPCS: 72125 ==

== ENCOUNTER 2021-07-24 07:52 | Inpatient (IN) | payer MEDICARE ==
[2021-07-24 08:45] LABS: #Lymphocytes 1.2 thou/uL (1.20-3.40); #Monocytes 0.4 thou/uL (0.11-0.59); #Neutrophils 4.5 thou/uL (1.40-6.50); %Basophils 0.5 % (0.0-1.0); %Eosinophils 0.7 % (0.0-10.0); %Monocytes 7.1 % (0.0-10.0); %Neutrophils 72.8 % (42.0-75.0); Hemoglobin 13.9 g/dL (12.0-16.0); Mean Corpuscular HGB CONC 32.5 g/dL (32.0-36.0); Mean Corpuscular Hemoglobin 32.1 pg (27.0-31.0); Mean Corpuscular Volume 98.7 fL (78.0-98.0); Mean Platelet Volume 6.8 fL (7.4-10.4); Platelet Count 210 thou/uL (130-400); RBC Distribution Width 14.4 % (11.5-14.5); Red Blood Cell (RBC) Count 4.34 mill/uL (4.20-5.40); White Blood Cell (WBC) Count 6.2 thou/uL (4.8-10.8)
[2021-07-24 09:10] LABS: Acetaminophen Less than 10.0 mcg/mL (10.0-30.0); Alcohol Less than 10 mg/dL (Less than 10); Salicylate Less than 8.0 mg/dL (15.0-30.0)
[2021-07-24 09:11] LABS: ALT (SGPT) 22 U/L (8-55); AST (SGOT) 27 U/L (5-34); Alkaline Phosphatase 77 U/L (40-110); Anion Gap 15 mmol/L (10-20); BUN (Urea Nitrogen) 16 mg/dL (9.8-20.1); Bilirubin, Total 0.6 mg/dL (0.2-1.2); CK (CPK) 730 U/L (29-168); Calc. Creatinine Clearance 0 mL/min (70-130); Calcium 9.1 mg/dL (7.8-10.44); Carbon Dioxide 23 mmol/L (23-31); Chloride 99 mmol/L (98-107); Globulin 2.8 g/dL (2.4-3.5); Glucose 212 mg/dL (83-110); Lipase 16 U/L (8-78); Potassium 3.9 mmol/L (3.5-5.1); Protein, Total 6.8 g/dL (5.8-8.1); Sodium 133 mmol/L (136-145)
[2021-07-24 09:27] LABS: Bacteria/HPF None Seen HPF (None Seen); Bilirubin Negative (Negative); Blood, Urine Trace (Negative); Clarity Clear (Clear); Glucose, Urine (Dipstick) Greater than 1000 mg/dL (Negative); Ketone, Urine Negative (Negative); Leukocyte Negative Leu/uL (Negative); Nitrite Negative (Negative); Protein, Urine (Dipstick) 10 mg/dL (Neg-Trace); RBC/HPF 0-3 HPF (0-3); Specific Gravity, Urine 1.025 (1.002-1.036); Squamous Epithelial None Seen HPF (0-3); Urobilinogen Normal mg/dL (Less than 2); WBC/HPF 0-3 HPF (0-3)
[2021-07-24 09:37] LABS: Amphetamine Not Detected (NotDetected); Barbiturates Screen Not Detected (NotDetected); Benzodiazepine Screen Not Detected (NotDetected); Cocaine Metabolite Screen Not Detected (NotDetected); Methadone Not Detected (NotDetected); Methamphetamine Not Detected (NotDetected); Opiate Screen Not Detected (NotDetected); Oxycodone Screen Not Detected (NotDetected); Phencyclidine (PCP) Not Detected (NotDetected); THC/Cannabinoid Screen Not Detected (NotDetected); Tricyclic Screen Detected (NotDetected)
[2021-07-24] MEDS ORDERED: Iopamidol-370 76% 500 ML 1 ML ONE (10:14)
[2021-07-24] MEDS ORDERED: Enoxaparin Sodium 40 MG/0.4 ML SYRINGE SC SCH ×2 (11:15→15:00)
[2021-07-24] MEDS ORDERED: HumaLOG 300 UNITS/3 ML VIAL SC PRN (11:20)
[2021-07-24] MEDS ORDERED: Dextrose 50% Abboject 50 ML SYRINGE SLOW IVP PRN (11:20)
[2021-07-24] MEDS ORDERED: Dextrose 5% in Water 1,000 ML IV PRN (11:20)
[2021-07-24] MEDS ORDERED: Enoxaparin Sodium 40 MG/0.4 ML SYRINGE ONE (14:59)
[2021-07-24] MEDS: Lactated Ringer's 1,000 ML IV SCH (15:24)
[2021-07-24 15:29] VITALS: BMI 27.3
[2021-07-24] MEDS ORDERED: Ketorolac Tromethamine 30 MG/ML VIAL IVP SCH (20:30)
[2021-07-24] MEDS: Gabapentin 300 MG CAP PO SCH (20:43)
[2021-07-24] MEDS: Atorvastatin Calcium 20 MG TAB PO SCH (20:43)
[2021-07-24] MEDS: sulfaSALAzine 500 MG TAB PO SCH (20:43)
[2021-07-24] MEDS: Magnesium Oxide 400 MG TAB PO SCH (20:43)
[2021-07-24] MEDS: Carvedilol 3.125 MG TAB PO SCH (20:44)
[2021-07-24] MEDS: Doxepin HCl 10 MG CAP PO PRN (20:45)
[2021-07-24 21:10] LABS: Hemoglobin A1c 8.8 % (4.0-6.0)
[2021-07-24 21:11] LABS: Magnesium 1.9 mg/dL (1.6-2.6)
[2021-07-24 21:26] LABS: SARS-CoV-2 PCR by NAA Not Detected (NotDetected)
[2021-07-24] MEDS: Acetaminophen 325 MG TAB PO PRN (23:10)
[2021-07-25] MEDS: Lactated Ringer's 1,000 ML IV SCH ×7 (00:05→21:40)
[2021-07-25] MEDS: Levothyroxine Sodium 100 MCG TAB PO SCH (05:52)
[2021-07-25 06:01] LABS: Anion Gap 9 mmol/L (10-20); BUN (Urea Nitrogen) 10 mg/dL (9.8-20.1); CK (CPK) 1353 U/L (29-168); Calc. Creatinine Clearance 95 mL/min (70-130); Calcium 8.2 mg/dL (7.8-10.44); Carbon Dioxide 26 mmol/L (23-31); Chloride 100 mmol/L (98-107); Glucose 135 mg/dL (83-110); Potassium 3.4 mmol/L (3.5-5.1); Sodium 132 mmol/L (136-145)
[2021-07-25] MEDS ORDERED: Nitroglycerin 0.4 MG TAB (25 Tab Bottle) ONE (08:31)
[2021-07-25] MEDS ORDERED: Non-Formulary Item 1 EACH (Dapagliflozin Propanediol [Farxiga] 10 MG Tablet) PO SCH (09:00)
[2021-07-25] MEDS: Empagliflozin 25 MG TAB PO SCH (09:03)
[2021-07-25] MEDS: Gabapentin 300 MG CAP PO SCH ×2 (09:03→20:13)
[2021-07-25] MEDS: DULoxetine 60 MG CAP PO SCH (09:03)
[2021-07-25] MEDS: sulfaSALAzine 500 MG TAB PO SCH ×2 (09:04→20:11)
[2021-07-25] MEDS: Magnesium Oxide 400 MG TAB PO SCH ×2 (09:04→20:11)
[2021-07-25] MEDS: Folic Acid 1 MG TAB PO SCH (09:04)
[2021-07-25] MEDS: Carvedilol 3.125 MG TAB PO SCH ×2 (09:04→20:13)
[2021-07-25] MEDS: Ibuprofen 200 MG TAB PO SCH ×3 (09:07→20:12)
[2021-07-25] MEDS ORDERED: Potassium Chloride 20 MEQ TAB PO SCH (10:15)
[2021-07-25] MEDS: Acetaminophen 325 MG TAB PO PRN ×3 (12:42→23:51)
[2021-07-25 13:04] LABS: Potassium, Urine 13.4 mmol/L
[2021-07-25] MEDS: Lidocaine 5% Patch TD SCH (13:39)
[2021-07-25] MEDS: Diclofenac 1% 100 GM GEL TP SCH ×3 (13:39→20:14)
[2021-07-25] MEDS: Transdermal Patch Removal TOP SCH (20:13)
[2021-07-25] MEDS: Atorvastatin Calcium 20 MG TAB PO SCH (20:13)
[2021-07-25] MEDS: Doxepin HCl 10 MG CAP PO PRN (21:41)
[2021-07-25] MEDS ORDERED: Ketorolac Tromethamine 30 MG/ML VIAL IVP SCH (21:45)
[2021-07-26] MEDS: Ibuprofen 200 MG TAB PO SCH ×4 (01:48→20:17)
[2021-07-26] MEDS ORDERED: Methocarbamol 500 MG TAB PO SCH (03:45)
[2021-07-26] MEDS: Lactated Ringer's 1,000 ML IV SCH ×4 (04:49→22:20)
[2021-07-26] MEDS: Levothyroxine Sodium 100 MCG TAB PO SCH (05:58)
[2021-07-26 08:36] LABS: Anion Gap 11 mmol/L (10-20); BUN (Urea Nitrogen) 7 mg/dL (9.8-20.1); CK (CPK) 2784 U/L (29-168); Calc. Creatinine Clearance 98 mL/min (70-130); Calcium 8.4 mg/dL (7.8-10.44); Carbon Dioxide 26 mmol/L (23-31); Chloride 100 mmol/L (98-107); Glucose 107 mg/dL (83-110); Potassium 3.6 mmol/L (3.5-5.1); Sodium 133 mmol/L (136-145)
[2021-07-26] MEDS: sulfaSALAzine 500 MG TAB PO SCH (09:47)
[2021-07-26] MEDS: Folic Acid 1 MG TAB PO SCH (09:48)
[2021-07-26] MEDS: Gabapentin 300 MG CAP PO SCH ×2 (09:48→20:18)
[2021-07-26] MEDS: Carvedilol 3.125 MG TAB PO SCH ×2 (09:49→20:18)
[2021-07-26] MEDS: DULoxetine 60 MG CAP PO SCH (09:49)
[2021-07-26] MEDS: Magnesium Oxide 400 MG TAB PO SCH ×2 (09:50→22:21)
[2021-07-26] MEDS: Diclofenac 1% 100 GM GEL TP SCH ×4 (09:51→22:19)
[2021-07-26] MEDS: Lidocaine 5% Patch TD SCH (09:51)
[2021-07-26] MEDS: Empagliflozin 25 MG TAB PO SCH (11:29)
[2021-07-26] MEDS: predniSONE 20 MG TAB PO SCH (17:40)
[2021-07-26] MEDS: Transdermal Patch Removal TOP SCH (22:17)
[2021-07-27] MEDS: Ibuprofen 200 MG TAB PO SCH ×4 (02:12→19:56)
[2021-07-27] MEDS: Lactated Ringer's 1,000 ML IV SCH ×5 (02:18→21:18)
[2021-07-27] MEDS: Levothyroxine Sodium 100 MCG TAB PO SCH (06:02)
[2021-07-27 06:31] LABS: Anion Gap 12 mmol/L (10-20); BUN (Urea Nitrogen) 8 mg/dL (9.8-20.1); CK (CPK) 1991 U/L (29-168); Calc. Creatinine Clearance 93 mL/min (70-130); Calcium 8.8 mg/dL (7.8-10.44); Carbon Dioxide 26 mmol/L (23-31); Chloride 97 mmol/L (98-107); Glucose 112 mg/dL (83-110); Potassium 4.1 mmol/L (3.5-5.1); Sodium 131 mmol/L (136-145)
[2021-07-27] MEDS ORDERED: Methocarbamol 500 MG TAB PO SCH (07:30)
[2021-07-27] MEDS: Empagliflozin 25 MG TAB PO SCH (08:46)
[2021-07-27] MEDS: Diclofenac 1% 100 GM GEL TP SCH ×4 (08:50→21:10)
[2021-07-27] MEDS: Carvedilol 3.125 MG TAB PO SCH ×2 (08:50→21:10)
[2021-07-27] MEDS: predniSONE 20 MG TAB PO SCH ×2 (08:50→16:39)
[2021-07-27] MEDS: Folic Acid 1 MG TAB PO SCH (08:56)
[2021-07-27] MEDS: DULoxetine 60 MG CAP PO SCH (08:56)
[2021-07-27] MEDS: Magnesium Oxide 400 MG TAB PO SCH ×2 (08:56→21:10)
[2021-07-27] MEDS: Gabapentin 300 MG CAP PO SCH ×2 (08:56→21:09)
[2021-07-27] MEDS: Lidocaine 5% Patch TD SCH (08:56)
[2021-07-27 08:58] LABS: Magnesium 2.1 mg/dL (1.6-2.6)
[2021-07-27] MEDS: Acetaminophen 325 MG TAB PO PRN ×2 (11:33→22:32)
[2021-07-27 15:15] LABS: ANA Symphony (Qualitative) Negative (Negative); ANA Symphony (Quantitative) 0.2 Ratio (< 0.7 Negative); dsDNA IgG Antibody 0.8 IU/mL (<10 Negative)
[2021-07-27] MEDS: HumaLOG 300 UNITS/3 ML VIAL SC PRN (16:41)
[2021-07-27] MEDS: Transdermal Patch Removal TOP SCH (21:13)
[2021-07-28] MEDS ORDERED: Methocarbamol 500 MG TAB PO PRN ×2 (01:28→10:00)
[2021-07-28] MEDS: Ibuprofen 200 MG TAB PO SCH ×3 (01:44→14:49)
[2021-07-28] MEDS: Lactated Ringer's 1,000 ML IV SCH ×3 (01:49→12:20)
[2021-07-28] MEDS ORDERED: Methocarbamol 500 MG TAB PO SCH (03:45)
[2021-07-28] MEDS: Acetaminophen 325 MG TAB PO PRN (03:58)
[2021-07-28 05:38] LABS: Anion Gap 16 mmol/L (10-20); BUN (Urea Nitrogen) 11 mg/dL (9.8-20.1); CK (CPK) 1647 U/L (29-168); Calc. Creatinine Clearance 89 mL/min (70-130); Calcium 9.4 mg/dL (7.8-10.44); Carbon Dioxide 22 mmol/L (23-31); Chloride 97 mmol/L (98-107); Glucose 129 mg/dL (83-110); Sodium 131 mmol/L (136-145)
[2021-07-28] MEDS: Levothyroxine Sodium 100 MCG TAB PO SCH (06:09)
[2021-07-28] MEDS ORDERED: Lactated Ringer's 500 ML IV SCH (07:00)
[2021-07-28] MEDS: Gabapentin 300 MG CAP PO SCH (10:28)
[2021-07-28] MEDS: Empagliflozin 25 MG TAB PO SCH (10:29)
[2021-07-28] MEDS: Diclofenac 1% 100 GM GEL TP SCH ×2 (10:29→14:49)
[2021-07-28] MEDS: DULoxetine 60 MG CAP PO SCH (10:29)
[2021-07-28] MEDS: predniSONE 20 MG TAB PO SCH (10:31)
[2021-07-28] MEDS: Carvedilol 3.125 MG TAB PO SCH (10:31)
[2021-07-28] MEDS: Lidocaine 5% Patch TD SCH (10:32)
[2021-07-28] MEDS: Folic Acid 1 MG TAB PO SCH (10:32)
[2021-07-28] MEDS: Magnesium Oxide 400 MG TAB PO SCH (10:32)
[2021-07-28] MEDS: HumaLOG 300 UNITS/3 ML VIAL SC PRN (12:16)
[2021-07-28 12:31] VITALS: BP 153/75; TEMP 98.2
== END 2021-07-28 17:35 | disposition home or self-care (01) | DRG 546 ==
LOC: ERS 07:52 → ERHOLD 10:35 → NEURO 17:53 → MSONC 07-26 17:18
PROVIDERS: ADMIT Family Medicine; ATTEND Family Medicine
DX: M33.20 Polymyositis, organ involvement unspecified (principal); E22.2 Syndrome of inappropriate secretion of antidiuretic hormone; F11.20 Opioid dependence, uncomplicated; Z20.822 Contact with and (suspected) exposure to COVID-19; E11.9 Type 2 diabetes mellitus without complications; R29.6 Repeated falls; F17.210 Nicotine dependence, cigarettes, uncomplicated; R62.7 Adult failure to thrive; E87.6 Hypokalemia; M06.9 Rheumatoid arthritis, unspecified; M19.90 Unspecified osteoarthritis, unspecified site; E78.5 Hyperlipidemia, unspecified; Z88.0 Allergy status to penicillin; Z91.013 Allergy to seafood; Z88.8 Allergy status to other drugs, medicaments and biological substances; Z79.890 Hormone replacement therapy; Z79.899 Other long term (current) drug therapy; Z79.84 Long term (current) use of oral hypoglycemic drugs; I25.2 Old myocardial infarction; Z90.710 Acquired absence of both cervix and uterus; Z98.890 Other specified postprocedural states; Z83.3 Family history of diabetes mellitus; Z68.27 Body mass index [BMI] 27.0-27.9, adult; Z82.49 Family history of ischemic heart disease and other diseases of the circulatory system
CPT/HCPCS: 36415; 36416; 51701; 70450; 71045; 71275; 72170; 80048; 80053; 80306; 80307; 81003; 81015; 82140; 82550; 83036; 83690; 83735; 83880; 83930; 83935; 84133; 84145; 84300; 84443; 84484; 85025; 85379; 85652; 86038; 86140; 86225; 93005; 93306; 93970; J1650; J1885; J7120; J7512; Q9967; U0003; U0005

== ENCOUNTER 2021-09-28 08:03 | Emergency (ER) | payer MEDICARE ==
[2021-09-28] MEDS ORDERED: HYDROcodone/Acetaminophen 5/325 mg Tablet ONE (09:15)
== END 2021-09-28 09:37 | disposition home or self-care (01) ==
LOC: ERS 08:03
DX: S09.90XA Unspecified injury of head, initial encounter (principal); S12.030A Displaced posterior arch fracture of first cervical vertebra, initial encounter for closed fracture; M13.811 Other specified arthritis, right shoulder; E03.9 Hypothyroidism, unspecified; E78.5 Hyperlipidemia, unspecified; E11.9 Type 2 diabetes mellitus without complications; I25.2 Old myocardial infarction; F17.210 Nicotine dependence, cigarettes, uncomplicated; W19.XXXA Unspecified fall, initial encounter; Z79.899 Other long term (current) drug therapy
CPT/HCPCS: 70450; 72125

== ENCOUNTER 2022-12-12 14:07 | Outpatient (CLI) | payer MEDICARE | END 2022-12-12 14:08 | disposition home or self-care (01) | LOC: BICCT 14:07 | PROVIDERS: ATTEND Family Medicine | DX: Z12.2 Encounter for screening for malignant neoplasm of respiratory organs (principal); F17.210 Nicotine dependence, cigarettes, uncomplicated | CPT/HCPCS: 71271 ==